=== PATIENT | female | born 1955 | race Caucasian/White ===

== ENCOUNTER 2016-12-05 22:03 | Emergency (ER) | payer BC ==
[~2016-12-05] VITALS: Ht 167.6 cm; Wt 67.1 kg
[~2016-12-05 22:03] MED LIST: ACYC-57 PO; ALPOPS1510; ASCA500 PO; BIMA0.038; DORZ1SOL; MULT-506 PO; ZFRODT4 SL
[2016-12-05 22:07] VITALS: TEMP 36.5; Ht 167.6 cm; Wt 67.1 kg
[2016-12-05] MEDS ORDERED: DOXYCYCLINE HYCLATE 100 MG CAP PO STA (22:34)
--- NOTE | 2016-12-05 22:37 | EMERGENCY ROOM VISIT NOTE ---
ED Visit Note First contact with patient: 22:16 CHIEF COMPLAINT: Tick bite HISTORY OF PRESENT ILLNESS: This patient noticed a tick embedded in the left side of her head this evening. She states she last washed her hair on Sunday , and believes the tick became embedded since then. She is uncertain exactly when the bite occurred. She attempted to use rubbing alcohol and Kelly dish detergent to remove the tick due to a chiropractor's recommendation, however she was unsuccessful. She denies any rash, joint pains, fatigue, or other concerning symptoms. She denies fever, chills, nausea, vomiting, or swelling. The patient is uncertain of her tetanus vaccination status. REVIEW OF SYSTEMS: A complete 10 point review of systems was reviewed with the patient with pertinent positives and negatives as per history of present illness. All else were negative. PMH: Insomnia, muscle aches ALLERGIES: None MEDS: Ambien, Flexeril SOCIAL HISTORY: The patient lives locally with family. She denies drug, alcohol , tobacco use. PHYSICAL EXAM: Vital Signs: Reviewed Nurse's notes. SKIN: There is a slightly engorged tick which remains intact in the left side of her scalp. There is no rash. There is a small zone of inflammation and eccymosis around the spot where the tick was. The skin is otherwise clear. NEUROLOGICAL: Alert and cooperative. Sensory and motor functions grossly intact. ED COURSE: The patient was seen and evaluated as above. The tick was removed using a tick twister. There were no remaining tick parts after removal. The patient was given a Tdap vaccination, and at her request, she was given 200 mg doxycycline as a prophylactic dose for Lyme disease. Discharge instructions were reviewed and the patient was discharged home in good condition. I attest that I have personally reviewed the patient's current medication list. Patient was found to have normal blood pressure on screening and does not require follow-up. DIFFERENTIAL DIAGNOSIS: Tick bite, insect bite, Lyme disease, cellulitis, abscess, and others DIAGNOSIS: Tick bite Current/Historical Medications Scheduled Ascorbic Acid (Vitamin C), 500 MG PO DAILY Bimatoprost (Lumigan), 1 DROPS OP HS Brimonidine Tartrate-Timolol M (Combigan), 1 DROP OPB BID Fish Oil (Milmay-3), 1 CAP PO Q2D [Juice Plus], 4 TABS PO DAILY Scheduled PRN Cyclobenzaprine Hcl (Flexeril), 1 TAB PO HS PRN for Sleep Zolpidem Tartrate (Ambien), 5 MG PO HS PRN for Sleep Allergies Coded Allergies: No Known Allergies (Unverified , 01/20/10) Vital Signs Date Time Temp Pulse Resp B/P (MAP) Pulse Ox O2 Delivery O2 Flow Rate FiO2 12/05/16 23:06 64 18 138/87 97 12/05/16 22:07 36.5 74 16 163/97 99 Room Air Medications Administered Medications (Trade) Dose Ordered Sig/Kam Route Start Time Stop Time Status Last Admin Dose Admin Doxycycline Hyclate (Vibramycin Cap) 200 mg NOW STAT PO 12/05/16 22:34 12/05/16 22:35 DC 12/05/16 22:42 200 MG Diphtheria/ Pertussis/Tetanus Vacc (Adacel Inj) 0.5 ml ONCE ONCE IM. 12/05/16 22:45 12/05/16 22:46 DC 12/05/16 22:44 0.5 ML Departure Information Impression Primary Impression: Tick bite Dispostion Home / Self-Care Condition GOOD Referrals Yesi Jones PA-C (PCP) Patient Instructions ED Bite Tick Abx Tx, ED Facts Tick, [facility] Additional Instructions You were seen in the emergency department today for a tick bite. This was successfully removed utilizing a tick twister. Please watch for signs of Lyme disease including erythema migrans or a bull's- eye rash. You should also watch for excessive joint pains, fatigue, lethargy, or other symptoms. You were given 200 mg doxycycline as a Lyme disease prophylaxis. You were given a Tdap Vaccination. Your arm may be sore from the vaccination for the next few days. Ibuprofen(Motrin, Advil) may be used for fever or pain. Use 600mg every six hours as needed. Take with food. Avoid using more than 2400mg in a 24 hour period. Do not use 2400mg per day for more than three consecutive days without physician direction. Prolonged inappropriate use can lead to stomach upset or ulcers. (AND/OR) Acetaminophen(Tylenol) may be used for fever or pain. Use 1000mg every six hours as needed. Avoid using more than 3000mg in a 24 hour period. Please follow up with your PCP in 7-14 days for recheck and possible labs for Lyme disease. Return to the emergency department for worsening redness, pain, swelling, puslike drainage, fever, chills, nausea, vomiting, or other concerning symptoms. Problem Qualifiers Primary Impression: Tick bite Encounter type: initial encounter Qualified Codes: W57.XXXA - Bitten or stung by nonvenomous insect and other nonvenomous arthropods, initial encounter
[2016-12-05] MEDS ORDERED: DIPHTHERIA/TETANUS/PERTUSSIS 0.5 ML SYR/VIAL IM. ONE (22:45)
[2016-12-05] MEDS ORDERED: BIMA0.01 OP (23:00)
[2016-12-05] MEDS ORDERED: ASCO1CAP3 PO (23:00)
[2016-12-05] MEDS ORDERED: CYCL10TA6 PO (23:00)
[2016-12-05] MEDS ORDERED: OMEG10007 PO (23:00)
[2016-12-05] MEDS ORDERED: BRIM0.2S OPB (23:00)
[2016-12-05] MEDS ORDERED: JUICE PLUS PO (23:00)
[2016-12-05] MEDS ORDERED: ZOLP5TAB PO (23:00)
[2016-12-05 23:06] VITALS: BP 138/87; PULSE 64; O2SAT 97
== END 2016-12-05 23:06 | disposition home or self-care (01) ==
LOC: C.EDB 22:06 → C.EDD 23:06
DX: S00.06XA Insect bite (nonvenomous) of scalp, initial encounter (principal); W57.XXXA Bitten or stung by nonvenomous insect and other nonvenomous arthropods, initial encounter; Y92.9 Unspecified place or not applicable; G47.00 Insomnia, unspecified; Z79.899 Other long term (current) drug therapy

== ENCOUNTER 2024-09-04 17:17 | Observation (INO) ==
[2024-09-04 18:46] LABS: Hematocrit (blood only) 44.4 % (37.0-47.0); Hemoglobin 15.0 g/dl (12.0-16.0); Immature Granulocytes # (auto) 0.01 K/uL (0.01-0.20); Immature Granulocytes % (auto) 0.2 %; Mean Corpuscular Hemoglobin 29.7 pg (25.0-34.0); Mean Corpuscular Volume 87.9 fL (80.0-100.0); Platelet Count 271 K/uL (130-400); RDW Standard Deviation 37.9 fL (36.4-46.3); Red Blood Count 5.05 M/uL (4.20-5.40); White Blood Count 5.48 K/ul (4.8-10.8)
[2024-09-04 19:03] LABS: Alanine Aminotransferase 24.0 U/L (7-52); Albumin Globulin Ratio 1.3 (0.9-2); Alkaline Phosphatase 91.0 U/L (34-104); Anion Gap 6.0 (3-11); Bilirubin,Total 0.4 mg/dl (0.2-1.0); Blood Urea Nitrogen 18.0 mg/dl (6-23); Calcium 9.9 mg/dl (8.6-10.3); Carbon Dioxide 31.0 mmol/L (21-32); Chloride 102.0 mmol/L (98-107); Creatinine Clr Calc Pharmacy 53.8 ml/min; Globulin 3.3 gm/dl (2.5-4.0); Glucose 106.0 mg/dl (70-99(Fasting)); Potassium 4.0 mmol/L (3.5-5.1); Sodium 139.0 mmol/L (136-145); Total Protein 7.7 gm/dl (6.0-8.3)
[2024-09-04 19:31] LABS: INR 1.0 (0.9-1.1); Partial Thromboplastin Time 26 Seconds (21-31); Prothrombin Time 10.6 Seconds (9.0-12.0)
[2024-09-04] MEDS: SODIUM CHLORIDE 0.9% 1,000 ML IV ONE (20:06)
--- NOTE | 2024-09-04 21:17 | XRay Report ---
Exam(s): XR CXR 2 VIEWS EXAM: XR Chest, 2 Views CLINICAL HISTORY: Reason for exam: PNA. TECHNIQUE: Frontal and lateral views of the chest. COMPARISON: No relevant prior studies available. FINDINGS: Lungs: [place] of markings or irregular opacity measuring roughly 17 mm projecting in the right lower lung field. No confluent consolidation or overt edema. Pleural space: No pleural effusion. No pneumothorax. Mediastinum: Unremarkable. Bones/joints: No acute fracture. Upper abdomen: Unremarkable as visualized. IMPRESSION: [place] of markings or irregular opacity measuring roughly 17 mm projecting in the right lower lung field. No confluent consolidation or overt edema. Electronically signed by: Maki Dockery M.D. 09/04/24 21:16 PM
--- NOTE | 2024-09-04 21:20 | Emergency Department Note ---
Impression & Plan Atypical pneumonia ED Provider Note NAME: LIBERTAD BENAVIDES AGE: 68 SEX: F : 1955 ARRIVES VIA: Walk-In INFORMANT: Patient ED PROVIDER(S): Héctor Philip DO CHIEF COMPLAINT: SOB HPI: This is a 68-year-old female with the PMHx of HTN, HLD, asthma/COPD and ongoing issues with recurrent PNA as well as prior aspergillosis and MAC presenting to [facility] for further evaluation of SOB. Patient reports she has had ongoing cold-like symptoms. She reports chest congestion and mild shortness of breath. She does report a cough that is mildly nonproductive. Patient states that she is almost finished with her course of cefdinir for pneumonia. Patient states she feels no improvement whatsoever. She said otherwise she is a pretty healthy individual. She is tired of being sick. They deny fever or chills. They deny abdominal pain, nausea and vomiting. No urinary complaints. No recent changes in bowel movements. Patient denies recent changes in medications or OTC supplements. Patient offers no other complaints, today. ADDITIONAL HISTORY OBTAINED: Per HPI Chronic Medical/Social Conditions Affecting Care: Per HPI PAST MEDICAL HISTORY: See Below PAST SURGICAL HISTORY: See Below FAMILY HISTORY: See Below SOCIAL HISTORY: See Below HOME MEDICATIONS: See Below ALLERGIES: See Below VITALS: See Below PHYSICAL EXAMINATION: GENERAL: Sitting up in bed, alert, well appearing, well nourished, no distress, non-toxic EYE EXAM: normal conjunctiva. PERRL and EOM's grossly intact. OROPHARYNX: no exudate, no erythema, lips, buccal mucosa, and tongue normal and mucous membranes are dry NECK: supple, no nuchal rigidity, no adenopathy, non-tender LUNGS: Clear to auscultation. Some congestion/rhonchi. Normal chest wall mechanics HEART: no murmurs, regular rate, regular rhythm ABDOMEN: abdomen soft, non-tender, normo-active bowel sounds, no masses, no rebound or guarding. BACK: Back is symmetrical on inspection and there is no deformity, no midline tenderness, no CVA tenderness. SKIN: no rashes and no bruising UPPER EXTREMITIES: upper extremities are grossly normal. LOWER EXTREMITIES: No pitting edema. NEURO EXAM: Normal sensorium, GCS 15, normal speech, no gross weakness of arms, no gross weakness of legs. MEDICAL DECISION MAKING: Differential diagnoses includes but not limited to Viral URI, failure of outpatient management of pneumonia, fungal infection, atypical pneumonia, COPD flare, asthma exacerbation In summary, this is a 68 year old female who presented with failure of outpatient treatment of community-acquired pneumonia. Differential as above. Nursing notes and pertinent past medical records reviewed. Vital signs reviewed and the patient is afebrile hemodynamically stable. The patient does not appear in acute respiratory distress. She has no significant tachypnea or wheezing. I do not think the patient is in an acute exacerbation of asthma or COPD. History and presentation revealed patient recently being treated for community-acquired pneumonia with cefdinir. Patient failing outpatient treatment. This is not improved at all. Patient does have complex pulmonary history including prior aspergillosis and MAC. I wonder if the patient has not had enough coverage for atypical organism being that she is only on cephalosporin as an outpatient. Do wonder if she could have recurrent fungal or atypical infections. Plan to repeat labs and chest x-ray today. Patient may benefit from further imaging if it is unclear that she still has pneumonia. Clinically she sounds like she has pneumonia. Diagnostics interpreted by me include EKG and cardiac monitoring as listed below: -Cardiac Monitoring: An order was placed for continuous cardiac monitoring. The monitor shows a rate of 70-110s with regular rhythm. -ECG: EKG independently interpreted by me reveals normal sinus rhythm at a ventricular rate of [address] segment changes to suggest STEMI. There are low voltage QRS complexes on this EKG. Patient completed laboratory studies and imaging. Results independently interpreted by me are CBC shows no significant leukocytosis or anemia. No electrolyte derangements or kidney dysfunction. Procalcitonin is also unremarkable. CXR independently interpreted by me reveals no evidence of focal consolidation to suggest pna. No large pneumothorax or pleural effusion. The patient still is having severe symptoms and does not feel any better with abnormal imaging and labs. Will obtain a CT of the chest for further characterization. Patient was managed with ceftriaxone for coverage of pneumonia with atypical coverage with azithromycin. She was given IV fluid resuscitation. CT shows again possible pneumonia in the right middle and lower lobes but could be mass. I am concerned that we may have been treating this patient for pneumonia but she could have underlying mass or malignancy. I do think she would benefit from evaluation by a jig grinder. I do think she would benefit from inpatient management as she has failed outpatient management. Patient may need further investigation into possible mass vs pneumonia with bronchoscopy if she fails to improve with IV antibiotics. Ultimately, the decision was made to admit the patient for atypical pneumonia and failure of outpatient treatment. I discussed the case with the hospitalist service via telephone/TigerText and they are agreeable to admit the patient to their services. Based on the above, including the patient's age, coexisting illnesses, labs, imaging, and exam findings the decision to treat as an inpatient. I discussed the patient with the hospitalist team who recommended admission to their services. They received the medications, treatments, interventions indicated above and their condition remained stable. I discussed my findings with the patient and their family and they understand and agree with the treatment plan. All patient / family questions were answered to their satisfaction. Based on the above, including the patient's age, coexisting illnesses, labs, imaging, and exam findings the decision to treat as an outpatient. I discussed my findings with the patient and they understand and agree with the treatment plan. Patient / Patient's family was counseled regarding concerning signs and symptoms that should prompt re-evaluation in the ED, and they expressed understanding. All patient / family questions were answered to their satisfaction. Strict return precautions were reviewed. See discharge instructions for more complete detail and supportive care recommendations. Consults/Care Managements Discussions: Per MDM ER treatment provided: See above Procedures:none Critical Care: None The chart was completed utilizing [employer] ([employer]) Speech voice recognition software. Grammatical errors, random word insertions, pronoun errors, and incomplete sentences are an occasional consequence of this system due to software limitations, ambient noise, and hardware issues. Any formal questions or concerns about the content, text, or information contained within the body of this dictation should be directly addressed to the physician for clarification. Past Med/Surg History Problem List (Updated 09/06/24 @ 20:35 by Héctor Philip DO) Atypical pneumonia (Acute) COPD with emphysema Abnormal chest CT Bronchiectasis Pulmonary nodule Pneumonia Social History Smoking Status: Former smoker Tobacco Type: Cigarettes Second Hand Exposure: No; Do You Dip or Chew Tobacco: No; Hx Alcohol Use: No Hx Substance Use: No Preferred Language: Martiniquais Communication Ability: Effective Embroidery Specialist Required: No Beliefs That Will Affect Care: None Current Living Situation: Spouse Feels Safe at Home: Yes Assistive Devices: Glasses Allergies Allergies Allergy/AdvReac Type Severity Reaction Status Date / Time latex Allergy sores in Verified 09/05/24 00:31 mouth Home Meds Home Medications Medication Instructions Recorded Confirmed L.acidophilus-L.plantarum-B.animalis-B.longum 1 cap PO QAM 09/05/24 09/05/24 2 billion cell capsule Mushroom Complex 1 cap PO QAM 09/05/24 09/05/24 Nucleo Immune 1 cap PO QAM 09/05/24 09/05/24 acyclovir 400 mg tablet 400 mg PO QPM 09/05/24 09/05/24 albuterol sulfate 90 mcg/actuation 2 puff inhalation Q6 PRN cough or 09/05/24 09/05/24 aerosol inhaler wheeze alprazolam 0.25 mg tablet 0.25 mg PO BID PRN Anxiety 09/05/24 09/05/24 ascorbic acid (vitamin C) 1,000 mg 3,000 mg PO TID 09/05/24 09/05/24 tablet (Vitamin C) aspirin 81 mg tablet,delayed 81 mg PO QAM 09/05/24 09/05/24 release vzlkpex-dlhhsqfzbjuif-bmqernqs 250 1 tab PO Q6H PRN Headache 09/05/24 09/05/24 mg-250 mg-65 mg tablet (Excedrin Migraine) brimonidine 0.2 %-timolol 0.5 % 1 drp OPB [facility] 09/05/24 09/05/24 eye drops (Combigan) calcium 1,000 mg (as 1 tab PO DAILY 09/05/24 09/05/24 carbonate)-vitamin D3 20 mcg (800 unit) tablet cider 1 tab PO 3XWK 09/05/24 09/05/24 fupteiu-Rh-kofskmuglfvpvpak-tea 500 mg-100 mcg-300 mg-60 mg tab (Apple Cider Vinegar Plus) cinnamon bark 500 mg capsule 500 mg PO AMPM 09/05/24 09/05/24 (Cinnamon) colostrum, bovine 500 mg capsule 1,000 mg PO QAM 09/05/24 09/05/24 cyclobenzaprine 10 mg tablet 10 mg PO BID PRN Muscle Spasm 09/05/24 09/05/24 echinacea 380 mg capsule 380 mg PO TID 09/05/24 09/05/24 fluticasone propionate 50 1 spray intranasal AMHS 09/05/24 09/05/24 mcg/actuation nasal spray,suspension garlic 580 mg capsule 1 mg PO QAM 09/05/24 09/05/24 latanoprostene bunod 0.024 % eye 1 drp OPB HS 09/05/24 09/05/24 drops (Vyzulta) lysine HCl 1,000 mg tablet 1,000 mg PO TID 09/05/24 09/05/24 magnesium 250 mg tablet 500 mg PO DAILY 09/05/24 09/05/24 melatonin 5 mg capsule 5 mg PO HS 09/05/24 09/05/24 multivitamin 1 tab PO QAM 09/05/24 09/05/24 nutritional supplement-fiber oral 1 ea PO UD 09/05/24 09/05/24 liquid oregano oil 1,500 mg capsule 1,500 mg PO DAILY PRN DIRECTED 09/05/24 09/05/24 rosuvastatin 5 mg tablet 5 mg PO Q OTHER DAY 09/05/24 09/05/24 vitamin B complex 1 tab PO QAM 09/05/24 09/05/24 zolpidem 5 mg tablet 5 mg PO HS 09/05/24 09/05/24 Previous Rx's Medication Instructions Recorded albuterol sulfate 2.5 mg/0.5 mL 2.5 mg (0.5 mL) NEB BID #60 ea 09/06/24 solution for nebulization albuterol sulfate 2.5 mg/3 mL 2.5 mg (3 mL) inhalation Q12H PRN 09/06/24 (0.083 %) solution for nebulization shortness of breath or wheezing #6 vials doxycycline hyclate 100 mg capsule 100 mg PO BID 14 days #28 caps 09/06/24 sodium chloride 7 % for 4 ml NEB BIDR #240 mL 09/06/24 nebulization Results & Data (ED) Vital Signs Vital Signs - 24 hr 09/04/24 17:20 09/04/24 19:14 09/04/24 19:56 Temperature 36.7 C Temperature Source Temporal Artery Scan Pulse Rate 73 Pulse Rate [Finger] 74 Respiratory Rate 20 20 Respiratory Effort / Characteristics Non-Labored Spontaneous Respiratory Depth Normal Respiratory Pattern Regular Blood Pressure 156/89 H Blood Pressure [Right Arm] 147/83 H Blood Pressure Mean 111 Blood Pressure Mean [Right Arm] 104 Blood Pressure Position Sitting Blood Pressure Position [Right Arm] Pulse Oximetry 97 97 94 Oxygen Delivery Method Room Air Room Air Room Air Sepsis Recent Fever Within 48 Hours No Sepsis New/Unexplained Change in Mental Status N/A Sepsis Action Taken by Nursing No Action Required 09/04/24 19:59 09/04/24 20:58 09/04/24 21:08 Temperature Temperature Source Pulse Rate 88 Pulse Rate [Finger] 83 Respiratory Rate 16 Respiratory Effort / Characteristics Non-Labored Non-Labored Spontaneous Respiratory Depth Normal Normal Respiratory Pattern Regular Blood Pressure Blood Pressure [Right Arm] 164/85 H Blood Pressure Mean Blood Pressure Mean [Right Arm] 111 Blood Pressure Position Blood Pressure Position [Right Arm] Lying Pulse Oximetry 97 Oxygen Delivery Method Room Air Sepsis Recent Fever Within 48 Hours Sepsis New/Unexplained Change in Mental Status Sepsis Action Taken by Nursing Laboratory Data 09/06/24 05:31 09/06/24 05:31 Lab Results 09/04/24 Range/Units 18:30 WBC 5.48 (4.8-10.8) K/ul RBC 5.05 (4.20-5.40) M/uL Hgb 15.0 (12.0-16.0) g/dl Hct 44.4 (37.0-47.0) % MCV 87.9 (80.0-100.0) fL MCH 29.7 (25.0-34.0) pg MCHC 33.8 (32.0-36.0) g/dL RDW Std Deviation 37.9 (36.4-46.3) fL RDW Coeff of Héctor 11.9 (11.5-14.5) % Plt Count 271 (130-400) K/uL MPV 10.6 (9.4-12.4) fL Immature Gran % (Auto) 0.2 % Neut % (Auto) 51.4 % Lymph % (Auto) 37.2 % Emmet % (Auto) 7.3 % Eos % (Auto) 2.6 % Baso % (Auto) 1.3 % Neut # (Auto) 2.82 (1.40-6.50) K/uL Lymph # (Auto) 2.04 (1.20-3.40) K/uL Emmet # (Auto) 0.40 (0.11-0.59) K/uL Eos # (Auto) 0.14 (0.00-0.50) K/uL Baso # (Auto) 0.07 (0.00-0.20) K/uL Immature Gran # (Auto) 0.01 (0.01-0.20) K/uL PT 10.6 (9.0-12.0) Seconds INR 1.0 (0.9-1.1) APTT 26 (21-31) Seconds PTT Ratio 1.0 Sodium 139 (136-145) mmol/L Potassium 4.0 (3.5-5.1) mmol/L Chloride 102 (98-107) mmol/L Carbon Dioxide 31 (21-32) mmol/L Anion Gap 6 (3-11) BUN 18 (6-23) mg/dl Creatinine 0.90 (0.6-1.2) mg/dl Est Cr Clr Drug Dosing 53.8 ml/min eGFR 69.64 BUN/Creatinine Ratio 20.0 (10-20) Glucose 106 H (70-99(Fasting)) mg/dl Calcium 9.9 (8.6-10.3) mg/dl Total Bilirubin 0.4 (0.2-1.0) mg/dl AST 33 (13-39) U/L ALT 24 (7-52) U/L Alkaline Phosphatase 91 (34-104) U/L Troponin I High Sens 3.5 (0-14) pg/ml Total Protein 7.7 (6.0-8.3) gm/dl Albumin 4.4 (3.4-5.0) gm/dl Globulin 3.3 (2.5-4.0) gm/dl Albumin/Globulin Ratio 1.3 (0.9-2) Procalcitonin < 0.02 (0-0.5) ng/ml Administered Medications Discontinued Medications Acetaminophen (Acetaminophen 325 Mg Tab) 650 mg PO Q4H PRN PRN Reason: Pain or Fever Stop: 10/05/24 03:25 Last Admin: 09/05/24 19:04 Dose: 650 mg Documented By: HM Acyclovir (Acyclovir 400 Mg Tab) 400 mg PO QPM ALEKS Stop: 10/05/24 20:59 Last Admin: 09/05/24 20:35 Dose: 400 mg Documented By: RASHMI Albuterol (Albuterol 0.5% Neb Soln 2.5 Mg/0.5 Ml Vial) 2.5 mg NEB Q6R [facility]; Protocol Stop: 10/05/24 18:59 Last Admin: 09/06/24 13:38 Dose: 2.5 mg Documented By: Admin: 09/06/24 06:57 Dose: 2.5 mg Documented By: Admin: 09/06/24 03:31 Dose: Not Given Documented By: Admin: 09/05/24 19:22 Dose: 2.5 mg Documented By: GILDARDO Ascorbic Acid (Ascorbic Acid 500 Mg Tab) 500 mg PO TID ALEKS Stop: 10/05/24 20:59 Last Admin: 09/06/24 14:32 Dose: 500 mg Documented By: Admin: 09/06/24 08:00 Dose: 500 mg Documented By: Admin: 09/05/24 20:36 Dose: 500 mg Documented By: RASHMI Aspirin (Aspirin 81 Mg Ectab) 81 mg PO QAM [facility] Stop: 10/05/24 08:59 Last Admin: 09/06/24 08:00 Dose: 81 mg Documented By: Admin: 09/05/24 08:38 Dose: 81 mg Documented By: THO Brimonidine/Timolol (Brimonidine Tartrate/Timolol) 1 drops OP BID [facility] Stop: 10/05/24 20:59 Last Admin: 09/06/24 08:00 Dose: 1 drops Documented By: Admin: 09/05/24 20:34 Dose: 1 drops Documented By: RASHMI Calcium/Vitamin D (Calcium 600mg + Vit D 400 Iu Tab) 1 tab PO DAILY ALEKS Stop: 10/05/24 08:59 Last Admin: 09/06/24 08:00 Dose: 1 tab Documented By: Admin: 09/05/24 08:39 Dose: 1 tab Documented By: THO Cyclobenzaprine HCl (Cyclobenzaprine Hcl 10 Mg Tab) 10 mg PO BID PRN PRN Reason: Muscle Spasm Stop: 10/05/24 03:25 Last Admin: 09/05/24 19:04 Dose: 10 mg Documented By: RASHMI Doxycycline Hyclate (Doxycycline Hyclate 100 Mg Cap) 100 mg PO NOW STA Stop: 09/06/24 12:29 Last Admin: 09/06/24 12:47 Dose: 100 mg Documented By: CYDNEY Fluticasone Propionate (Fluticasone Propionate Na Spr 16 Gm Btl) 1 sprays NA AMHS ALEKS Stop: 10/05/24 08:59 Last Admin: 09/06/24 08:00 Dose: 1 sprays Documented By: Admin: 09/05/24 20:34 Dose: 1 sprays Documented By: Admin: 09/05/24 08:37 Dose: 1 sprays Documented By: THO Guaifenesin (Guaifenesin 600 Mg Tabcr) 600 mg PO Q12 ALEKS Stop: 10/05/24 20:59 Last Admin: 09/06/24 08:00 Dose: 600 mg Documented By: Admin: 09/05/24 20:35 Dose: 600 mg Documented By: RASHMI Sodium Chloride (Nss) 1,000 mls @ 999 mls/hr IV .Q1H1M ONE Stop: 09/04/24 21:03 Last Infusion: 09/04/24 21:09 Dose: Infused Documented By: Admin: 09/04/24 20:06 Dose: 999 mls/hr Documented By: EDVIN Ceftriaxone Sodium (Rocephin) 1,000 mg in 50 mls @ 100 mls/hr IV NOW STA Stop: 09/05/24 00:16 Last Infusion: 09/05/24 00:57 Dose: Infused Documented By: Admin: 09/05/24 00:13 Dose: 100 mls/hr Documented By: EDVIN Azithromycin (Zithromax) 500 mg in 255 mls @ 127.5 mls/hr IV NOW ONE Stop: 09/05/24 01:46 Last Infusion: 09/05/24 02:14 Dose: Infused Documented By: Admin: 09/05/24 00:13 Dose: 127.5 mls/hr Documented By: EDVIN Piperacillin Sod/Tazobactam Sod (Zosyn) 4.5 gm in 100 mls @ 25 mls/hr IV Q8H [facility]; Protocol Stop: 09/10/24 05:59 Last Infusion: 09/06/24 09:17 Dose: Infused Documented By: Admin: 09/06/24 05:17 Dose: 25 mls/hr Documented By: Infusion: 09/06/24 02:54 Dose: Infused Documented By: Admin: 09/05/24 22:30 Dose: 25 mls/hr Documented By: Infusion: 09/05/24 17:34 Dose: Infused Documented By: Admin: 09/05/24 13:33 Dose: 25 mls/hr Documented By: Infusion: 09/05/24 10:56 Dose: Infused Documented By: Admin: 09/05/24 06:26 Dose: 25 mls/hr Documented By: RASHMI Azithromycin (Zithromax) 500 mg in 255 mls @ 127.5 mls/hr IV Q24H ALEKS Stop: 09/10/24 20:59 Last Infusion: 09/05/24 23:03 Dose: Infused Documented By: Admin: 09/05/24 20:34 Dose: 127.5 mls/hr Documented By: RASHMI Ioversol (Optiray 320 125ml) 115 ml IV ONCE ONE Stop: 09/04/24 21:39 Last Admin: 09/04/24 21:39 Dose: 115 ml Documented By: MARINO Lactobacillus Acidophilus (Advanced Probiotic 625 Mg Capsule) 1,250 mg PO QAM ALEKS Stop: 10/05/24 08:59 Last Admin: 09/06/24 08:00 Dose: 1,250 mg Documented By: Admin: 09/05/24 08:38 Dose: 1,250 mg Documented By: THO Magnesium Oxide (Magnesium Oxide 400 Mg Tab) 400 mg PO DAILY ALEKS Stop: 10/05/24 08:59 Last Admin: 09/06/24 08:00 Dose: 400 mg Documented By: Admin: 09/05/24 08:39 Dose: 400 mg Documented By: THO Melatonin (Melatonin 3 Mg Tab) 4.5 mg PO HS ALEKS Stop: 10/05/24 20:59 Last Admin: 09/05/24 20:35 Dose: 4.5 mg Documented By: RASHMI Miscellaneous (Brimonidine-Timolol [Combigan]: Order Awaiting Action) 1 each N/A QS ALEKS Stop: 10/05/24 07:59 Last Admin: 09/05/24 15:11 Dose: Not Given Documented By: Admin: 09/05/24 07:52 Dose: Not Given Documented By: THO Miscellaneous (Latanoprostene Bunod [Vyzulta]: Order Awaiting Action) 1 each N/A QS [facility] Stop: 10/05/24 07:59 Last Admin: 09/05/24 15:11 Dose: Not Given Documented By: Admin: 09/05/24 07:53 Dose: Not Given Documented By: THO Miscellaneous (Excedrin Migraine*Order Awaiting Action) 1 each N/A QS [facility] Stop: 10/06/24 15:59 Last Admin: 09/06/24 14:00 Dose: Not Given Documented By: CYDNEY Multivitamins (Multivitamin Tab) 1 tab PO QAM [facility] Stop: 10/05/24 08:59 Last Admin: 09/06/24 08:00 Dose: 1 tab Documented By: Admin: 09/05/24 08:39 Dose: 1 tab Documented By: THO Latanoprostene Hakan ([Vyzulta]) 1 each OP [facility] Stop: 10/05/24 20:59 Last Admin: 09/05/24 20:35 Dose: 1 drops Documented By: RASHMI Rosuvastatin Calcium (Rosuvastatin Calcium 5 Mg Tab) 5 mg PO Q48H ALEKS Stop: 10/05/24 08:59 Last Admin: 09/05/24 08:39 Dose: 5 mg Documented By: THO Sodium Chloride (Sodium Chlor 7% 4 Ml Neb) 4 ml NEB BIDR [facility] Stop: 10/05/24 18:59 Last Admin: 09/06/24 06:57 Dose: 4 ml Documented By: Admin: 09/05/24 19:22 Dose: 4 ml Documented By: GILDARDO Vitamin B Complex (Vitamin B Complex Tab) 1 tab PO QAM [facility] Stop: 10/05/24 08:59 Last Admin: 09/06/24 08:00 Dose: 1 tab Documented By: Admin: 09/05/24 08:39 Dose: 1 tab Documented By: THO Zolpidem Tartrate (Zolpidem Tartrate 5 Mg Tab) 5 mg PO HS [facility] Stop: 10/05/24 20:59 Last Admin: 09/05/24 20:35 Dose: 5 mg Documented By: RASHMI Imaging Data Radiologist's Impression: Chest X-Ray 09/04/24 20:03 Exam(s): XR CXR 2 VIEWS EXAM: XR Chest, 2 Views CLINICAL HISTORY: Reason for exam: PNA. TECHNIQUE: Frontal and lateral views of the chest. COMPARISON: No relevant prior studies available. FINDINGS: Lungs: Malone of markings or irregular opacity measuring roughly 17 mm projecting in the right lower lung field. No confluent consolidation or overt edema. Pleural space: No pleural effusion. No pneumothorax. Mediastinum: Unremarkable. Bones/joints: No acute fracture. Upper abdomen: Unremarkable as visualized. IMPRESSION: Malone of markings or irregular opacity measuring roughly 17 mm projecting in the right lower lung field. No confluent consolidation or overt edema. Electronically signed by: Maki Dockery M.D. 09/04/24 21:16 PM Discharge Plan Visit Data Chief Complaint: Shortness of Breath/Dyspnea Stated Complaint: COUGH, DIFFICULTY BREATHING, DIZZY, SICK IN STOMAC ED Provider: Héctor Philip Discharge Problem: Atypical pneumonia Patient Disposition: Admitted As Inpatient Condition: Good Discharge Instructions Interventions: ED Discharge Assessment Last Done: 09/05/24 02:53
[2024-09-04] MEDS: OPTIRAY 320 125ml IV ONE (21:39)
--- NOTE | 2024-09-04 23:35 | CT Scan Report ---
Exam(s): CTA CHEST IV Amt: 115 ml optiray 320 EXAM: CT Angiography Chest With Intravenous Contrast CLINICAL HISTORY: Evaluate for potential PE. TECHNIQUE: Axial computed tomographic angiography images of the chest with intravenous contrast. CTDI is 20 mGy and DLP is 313.96 mGy-cm. Automated exposure control was utilized for the study. A dose lowering technique was utilized adhering to the principles of ALARA. MIP reconstructed images were created and reviewed. CONTRAST: 115 mL Optiray 320 COMPARISON: No relevant prior studies available. FINDINGS: Pulmonary arteries: No evidence for pulmonary embolism. Aorta: No acute findings. No thoracic aortic aneurysm. Lungs: Subsegmental masslike airspace consolidation involving the anterior and inferior right middle lobe. The lungs are otherwise well- aerated. Pleural space: Unremarkable. No significant effusion. No pneumothorax. Heart: The cardiac chambers are normal in size. Moderate mid LAD calcification. No pericardial effusion. Bones/joints: No acute fracture. No dislocation. Soft tissues: Unremarkable. Lymph nodes: Unremarkable. No enlarged lymph nodes. IMPRESSION: 1. No evidence for pulmonary embolism. 2. Subsegmental masslike airspace consolidation involving the anterior and inferior right middle lobe. The primary consideration is pneumonia; however, recommend follow-up to resolution to exclude an underlying mass lesion. Electronically signed by: Faisal Robison MD 09/04/24 23:34 PM
[2024-09-05] MEDS: AZITHROMYCIN 500 MG/255 ML BAG IV ONE (00:13)
[2024-09-05] MEDS: cefTRIAXone SODIUM 1,000 MG/50 ML BAG IV STA (00:13)
--- NOTE | 2024-09-05 02:44 | History & Physical Report ---
Date of Service September 05, 2024 Assessment & Plan (1) Pneumonia: Plan: 68-year-old female with past medical history significant for prediabetes, asthma in remission, nonallergic rhinitis, hypertension, CAD, dry mouth and eyes, lichen planus, cervicalgia, migraine, adrenal nodule, persistent insomnia, comes because of ongoing cough and shortness of breath. Patient is having cough since last 3 weeks. Initially had some fever. Bringing up phlegm. Sputum was brownish and bloody. Saw pulmonary on 08/27/2024 and prescribed Z-Corey. She took Z-Corey for 1 day and next day antibiotic was changed to cefdinir. Initially she felt better but the symptoms are not improving. She called pulmonary office and chest x-ray was done and was felt not much improvement so she was advised to come to the ER. Getting shortness of breath with exertion. Some chest heaviness on and off. Sometimes chest tightness with taking deep breath on the right side. Having headache. Dry mouth. No sore throat. Feeling nauseous. No abdominal pain. Normal bowel and bladder movements. Feeling weak and tired. Hemodynamics are okay. Patient has history of MSSA. 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 Completed 3 weeks of voriconazole therapy. Plan to follow-up with CT chest in 6 months. 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 History of recurrent sinus infection. Follows with pulmonary. Pneumonia Failed outpatient treatment History of recurrent pneumonia History of aspergillosis status posttreatment for 3 weeks with voriconazole History of MAC CTA chest showing subsegmental masslike airspace consolidation involving the anterior inferior right middle lobe. Most likely pneumonia but recommended follow-up to resolution to exclude an underlying mass lesion ER given Rocephin and azithromycin Will continue with Zosyn and azithromycin Pulmonary consult in a.m. for further recommendations Mild obstructive CAD per Cardiac cath 03/2023 PVCs On aspirin and statin stopped b tricia as it was causing dry mouyh HTN not on meds will monitor. Asthma Continue home inhalers Dry mouth and eyes Continue home eyedrops DVT prophylaxis SCDs for now Disposition Med/telemetry Full code History of Present Illness Chief Complaint: shortness of breath and cough Primary Care Provider: Yesi Jones PA-C 68-year-old female with past medical history significant for prediabetes, asthma in remission, nonallergic rhinitis, hypertension, CAD, dry mouth and eyes, lichen planus, cervicalgia, migraine, adrenal nodule, persistent insomnia, comes because of ongoing cough and shortness of breath. Patient is having cough since last 3 weeks. Initially had some fever. Bringing up phlegm. Sputum was brownish and bloody. Saw pulmonary on 08/27/2024 and prescribed Z-Corey. She took Z-Corey for 1 day and next day antibiotic was changed to cefdinir. Initially she felt better but the symptoms are not improving. She called pulmonary office and chest x-ray was done and was felt not much improvement so she was advised to come to the ER. Getting shortness of breath with exertion. Some chest heaviness on and off. Sometimes chest tightness with taking deep breath on the right side. Having headache. Dry mouth. No sore throat. Feeling nauseous. No abdominal pain. Normal bowel and bladder movements. Feeling weak and tired. Hemodynamics are okay. Patient has history of MSSA. 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 Completed 3 weeks of voriconazole therapy. Plan to follow-up with CT chest in 6 months. 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 History of recurrent sinus infection. Follows with pulmonary. Past medical history. As mentioned above Past surgical history. Breast lesion excision. Bronchoscopy colonoscopy with left heart catheterization. Cryocautery of cervix. Social history. . Quit smoking 1984. Smoked 1 pack a day for 7 years. No alcohol use. No drug use. Family history. Paternal aunt had breast cancer. Paternal grandfather had lung and colon cancer. Mother had dementia. GERD. Father had [place]. Maternal grandfather heart disorder. Sister has migraines. Allergies Allergy/AdvReac Type Severity Reaction Status Date / Time latex Allergy sores in Verified 09/05/24 00:31 mouth Home Medications Medication Instructions Recorded Confirmed Type L.acidophilus-L.plantarum-B.animalis-B.longum 1 cap PO QAM 09/05/24 09/05/24 History 2 billion cell capsule Mushroom Complex 1 cap PO QAM 09/05/24 09/05/24 History Nucleo Immune 1 cap PO QAM 09/05/24 09/05/24 History acyclovir 400 mg tablet 400 mg PO QPM 09/05/24 09/05/24 History albuterol sulfate 90 mcg/actuation 2 puff inhalation Q6 PRN cough or 09/05/24 09/05/24 History aerosol inhaler wheeze alprazolam 0.25 mg tablet 0.25 mg PO BID PRN Anxiety 09/05/24 09/05/24 History ascorbic acid (vitamin C) 1,000 mg 3,000 mg PO TID 09/05/24 09/05/24 History tablet (Vitamin C) aspirin 81 mg tablet,delayed 81 mg PO QAM 09/05/24 09/05/24 History release qfhkbeh-kwwevwvtylalc-uwnopjdd 250 1 tab PO Q6H PRN Headache 09/05/24 09/05/24 History mg-250 mg-65 mg tablet (Excedrin Migraine) brimonidine 0.2 %-timolol 0.5 % 1 drp OPB AMHS 09/05/24 09/05/24 History eye drops (Combigan) calcium 1,000 mg (as 1 tab PO DAILY 09/05/24 09/05/24 History carbonate)-vitamin D3 20 mcg (800 unit) tablet cefdinir 300 mg capsule 300 mg PO AMHS 09/05/24 09/05/24 History cider 1 tab PO 3XWK 09/05/24 09/05/24 History rknosts-Ht-nsflqruddcwrgiub-tea 500 mg-100 mcg-300 mg-60 mg tab (Apple Cider Vinegar Plus) cinnamon bark 500 mg capsule 500 mg PO AMPM 09/05/24 09/05/24 History (Cinnamon) colostrum, bovine 500 mg capsule 1,000 mg PO QAM 09/05/24 09/05/24 History cyclobenzaprine 10 mg tablet 10 mg PO BID PRN Muscle Spasm 09/05/24 09/05/24 History echinacea 380 mg capsule 380 mg PO TID 09/05/24 09/05/24 History fluticasone propionate 50 1 spray intranasal AMHS 09/05/24 09/05/24 History mcg/actuation nasal spray,suspension garlic 580 mg capsule 1 mg PO QAM 09/05/24 09/05/24 History latanoprostene bunod 0.024 % eye 1 drp OPB HS 09/05/24 09/05/24 History drops (Vyzulta) lysine HCl 1,000 mg tablet 1,000 mg PO TID 09/05/24 09/05/24 History magnesium 250 mg tablet 500 mg PO DAILY 09/05/24 09/05/24 History melatonin 5 mg capsule 5 mg PO HS 09/05/24 09/05/24 History multivitamin 1 tab PO QAM 09/05/24 09/05/24 History nutritional supplement-fiber oral 1 ea PO UD 09/05/24 09/05/24 History liquid oregano oil 1,500 mg capsule 1,500 mg PO DAILY PRN DIRECTED 09/05/24 09/05/24 History rosuvastatin 5 mg tablet 5 mg PO Q OTHER DAY 09/05/24 09/05/24 History vitamin B complex 1 tab PO QAM 09/05/24 09/05/24 History zolpidem 5 mg tablet 5 mg PO HS 09/05/24 09/05/24 History Past Med/Surg History Problem List (Updated 09/05/24 @ 02:40 by Duglas Coats MD) Pneumonia Social History Smoking Status: Former smoker Tobacco Type: Cigarettes Second Hand Exposure: No; Do You Dip or Chew Tobacco: No; Tobacco Cessation Education Requested by Patient: No Hx Alcohol Use: No Hx Substance Use: No Preferred Language: Libyan Communication Ability: Effective Auto Travel Counselor Required: No Beliefs That Will Affect Care: None Current Living Situation: Spouse Other Information That Helps Us Care for You: No Feels Safe at Home: Yes Safety Concerns: Feels Safe At This Time Assistive Devices: None Review of Systems Review of Systems: All systems reviewed & are unremarkable except as noted in HPI & below Physical Exam Physical Exam: General- Not in distress Head- atraumatic Eyes- PERRL. ENT- oropharynx clear Neck- supple, no JVD. Lungs- clear to auscultation no wheezing or crackles Heart- regular rhythm; no murmur, no gallop. Abdomen- normal bowel sounds, soft, nontender, no distension Extremities- no pretibial edema, no erythema seen Neuro- alert, oriented PERRL, no facial palsy; no dysarthria; moves extremities Results & Data Results & Data Vital Signs (Past 12 Hours) Vital Signs Temp Pulse Pulse Resp BP BP Pulse Ox 09/05/24 02:28 81 16 142/96 H 97 09/05/24 01:43 99 H 09/05/24 00:55 82 16 166/115 H 97 09/04/24 23:29 110 H 16 143/88 H 97 09/04/24 21:44 84 16 181/91 H 94 09/04/24 21:08 88 09/04/24 20:58 83 16 164/85 H 97 09/04/24 19:56 94 09/04/24 19:14 74 20 147/83 H 97 09/04/24 17:20 36.7 C 73 20 156/89 H 97 O2 Del Method 09/05/24 02:28 Room Air 09/05/24 01:43 09/05/24 00:55 Room Air 09/04/24 23:29 Room Air 09/04/24 21:44 Room Air 09/04/24 21:08 09/04/24 20:58 Room Air 09/04/24 19:56 Room Air 09/04/24 19:14 Room Air 09/04/24 17:20 Room Air Diagnostic Findings Laboratory Results WBC 5.48 K/ul (4.8-10.8) 09/04/24 18:30 RBC 5.05 M/uL (4.20-5.40) 09/04/24 18:30 Hgb 15.0 g/dl (12.0-16.0) 09/04/24 18:30 Hct 44.4 % (37.0-47.0) 09/04/24 18:30 MCV 87.9 fL (80.0-100.0) 09/04/24 18:30 MCH 29.7 pg (25.0-34.0) 09/04/24 18:30 MCHC 33.8 g/dL (32.0-36.0) 09/04/24 18:30 RDW Std Deviation 37.9 fL (36.4-46.3) 09/04/24 18:30 RDW Coeff of Héctor 11.9 % (11.5-14.5) 09/04/24 18:30 Plt Count 271 K/uL (130-400) 09/04/24 18:30 MPV 10.6 fL (9.4-12.4) 09/04/24 18:30 Immature Gran % (Auto) 0.2 % 09/04/24 18:30 Neut % (Auto) 51.4 % 09/04/24 18:30 Lymph % (Auto) 37.2 % 09/04/24 18:30 [place] % (Auto) 7.3 % 09/04/24 18:30 Eos % (Auto) 2.6 % 09/04/24 18:30 Baso % (Auto) 1.3 % 09/04/24 18:30 Neut # (Auto) 2.82 K/uL (1.40-6.50) 09/04/24 18:30 Lymph # (Auto) 2.04 K/uL (1.20-3.40) 09/04/24 18:30 [place] # (Auto) 0.40 K/uL (0.11-0.59) 09/04/24 18:30 Eos # (Auto) 0.14 K/uL (0.00-0.50) 09/04/24 18:30 Baso # (Auto) 0.07 K/uL (0.00-0.20) 09/04/24 18:30 Immature Gran # (Auto) 0.01 K/uL (0.01-0.20) 09/04/24 18:30 PT 10.6 Seconds (9.0-12.0) 09/04/24 18:30 INR 1.0 (0.9-1.1) 09/04/24 18:30 APTT 26 Seconds (21-31) 09/04/24 18:30 PTT Ratio 1.0 09/04/24 18:30 Sodium 139 mmol/L (136-145) 09/04/24 18:30 Potassium 4.0 mmol/L (3.5-5.1) 09/04/24 18:30 Chloride 102 mmol/L (98-107) 09/04/24 18:30 Carbon Dioxide 31 mmol/L (21-32) 09/04/24 18:30 Anion Gap 6 (3-11) 09/04/24 18:30 BUN 18 mg/dl (6-23) 09/04/24 18:30 Creatinine 0.90 mg/dl (0.6-1.2) 09/04/24 18:30 Est Cr Clr Drug Dosing 53.8 ml/min 09/04/24 18:30 eGFR 69.64 09/04/24 18:30 BUN/Creatinine Ratio 20.0 (10-20) 09/04/24 18:30 Glucose 106 mg/dl (70-99(Fasting)) H 09/04/24 18:30 Calcium 9.9 mg/dl (8.6-10.3) 09/04/24 18:30 Total Bilirubin 0.4 mg/dl (0.2-1.0) 09/04/24 18:30 AST 33 U/L (13-39) 09/04/24 18:30 ALT 24 U/L (7-52) 09/04/24 18:30 Alkaline Phosphatase 91 U/L (34-104) 09/04/24 18:30 Troponin I High Sens 3.5 pg/ml (0-14) 09/04/24 18:30 Total Protein 7.7 gm/dl (6.0-8.3) 09/04/24 18:30 Albumin 4.4 gm/dl (3.4-5.0) 09/04/24 18:30 Globulin 3.3 gm/dl (2.5-4.0) 09/04/24 18:30 Albumin/Globulin Ratio 1.3 (0.9-2) 09/04/24 18:30 Impressions Chest X-Ray 09/04/24 20:03 Exam(s): XR CXR 2 VIEWS EXAM: XR Chest, 2 Views CLINICAL HISTORY: Reason for exam: PNA. TECHNIQUE: Frontal and lateral views of the chest. COMPARISON: No relevant prior studies available. FINDINGS: Lungs: [place] of markings or irregular opacity measuring roughly 17 mm projecting in the right lower lung field. No confluent consolidation or overt edema. Pleural space: No pleural effusion. No pneumothorax. Mediastinum: Unremarkable. Bones/joints: No acute fracture. Upper abdomen: Unremarkable as visualized. IMPRESSION: [place] of markings or irregular opacity measuring roughly 17 mm projecting in the right lower lung field. No confluent consolidation or overt edema. Electronically signed by: Maki Dockery M.D. 09/04/24 21:16 PM Chest CTA 09/04/24 21:20 Exam(s): CTA CHEST IV Amt: 115 ml optiray 320 EXAM: CT Angiography Chest With Intravenous Contrast CLINICAL HISTORY: Evaluate for potential PE. TECHNIQUE: Axial computed tomographic angiography images of the chest with intravenous contrast. CTDI is 20 mGy and DLP is 313.96 mGy-cm. Automated exposure control was utilized for the study. A dose lowering technique was utilized adhering to the principles of ALARA. MIP reconstructed images were created and reviewed. CONTRAST: 115 mL Optiray 320 COMPARISON: No relevant prior studies available. FINDINGS: Pulmonary arteries: No evidence for pulmonary embolism. Aorta: No acute findings. No thoracic aortic aneurysm. Lungs: Subsegmental masslike airspace consolidation involving the anterior and inferior right middle lobe. The lungs are otherwise well- aerated. Pleural space: Unremarkable. No significant effusion. No pneumothorax. Heart: The cardiac chambers are normal in size. Moderate mid LAD calcification. No pericardial effusion. Bones/joints: No acute fracture. No dislocation. Soft tissues: Unremarkable. Lymph nodes: Unremarkable. No enlarged lymph nodes. IMPRESSION: 1. No evidence for pulmonary embolism. 2. Subsegmental masslike airspace consolidation involving the anterior and inferior right middle lobe. The primary consideration is pneumonia; however, recommend follow-up to resolution to exclude an underlying mass lesion. Electronically signed by: Faisal Robison MD 09/04/24 23:34 PM ECG Additional Comments: ECG. Sinus rhythm with occasional PVCs rate of 76. QTc 447 Code Status & VTE Plan VTE Prophylaxis Plan VTE Prophylaxis will be ordered: Yes
[2024-09-05] MEDS ORDERED: NITROGLYCERIN SL 0.4 MG/TAB TAB SL PRN (03:26)
[2024-09-05] MEDS ORDERED: NON-FORMULARY MEDICATION (Aspirin-Acetaminophen-Caffeine [Excedrin Migraine] 250-250-65 mg PO PRN (03:26)
[2024-09-05] MEDS ORDERED: ALBUTEROL HFA 8 GM INHALER INH PRN (03:26)
[2024-09-05] MEDS: PIPERACILLIN/TAZOBACTAM 4.5 GM/100 ML BAG IV SCH (06:26)
[2024-09-05 06:53] LABS: Hematocrit (blood only) 41.0 % (37.0-47.0); Hemoglobin 14.0 g/dl (12.0-16.0); Immature Granulocytes # (auto) 0.01 K/uL (0.01-0.20); Immature Granulocytes % (auto) 0.2 %; Mean Corpuscular Hemoglobin 30.2 pg (25.0-34.0); Mean Corpuscular Volume 88.4 fL (80.0-100.0); Platelet Count 215 K/uL (130-400); RDW Standard Deviation 37.6 fL (36.4-46.3); Red Blood Count 4.64 M/uL (4.20-5.40); White Blood Count 5.31 K/ul (4.8-10.8)
[2024-09-05 07:09] LABS: Anion Gap 7.0 (3-11); Blood Urea Nitrogen 11.0 mg/dl (6-23); Calcium 9.1 mg/dl (8.6-10.3); Carbon Dioxide 31.0 mmol/L (21-32); Chloride 104.0 mmol/L (98-107); Creatinine Clr Calc Pharmacy 71.2 ml/min; Glucose 86.0 mg/dl (70-99(Fasting)); Magnesium 2.2 mg/dl (1.7-2.4); Potassium 3.5 mmol/L (3.5-5.1); Sodium 142.0 mmol/L (136-145)
--- NOTE | 2024-09-05 07:52 | Pulmonary Consultation ---
Date of Consultation September 05, 2024 Assessment & Plan (1) Pulmonary nodule: (2) Bronchiectasis: (3) Abnormal chest CT: (4) COPD with emphysema: Plan CTA chest 09/04/2024 personally viewed: Paraseptal emphysema appreciated bilaterally Minimal bilateral apical pleural scarring Pulmonary opacity/nodularity appreciated in the right middle lobe medial segment perifissural Pulmonary nodule with central calcification superior to there is nodularity in the right middle lobe Bronchiectasis of the medial segment of right middle lobe No significant mediastinal lymphadenopathy Social history: [id number] smoking history, quit at the age of 38. --Abnormal chest CT with right middle lobe opacity and nodule with central calcification chest tube. QTc 447 Procalcitonin negative I was personally able to look at the CAT scan of the chest in June 2024 as well as March 2024. Patient had dense consolidative process in the medial segment of right middle lobe in March 2024 which showed some improvement in June 2024 but she still had 2 pulmonary nodules in June 2024 The latest CAT scan shows consolidative process perifissural which is new. Given the duration between end of June and end august is only 2 months, I would not expect as malignancy to grow this fast. This is most likely infectious. Would recommend to continue with antibiotics. --Bronchiectasis Appreciated in the right middle lobe --COPD with emphysema [id number] smoking history, quit at the age of 38. Not on any inhalers at home Patient already follows up with pulmonary Dr. Bell as an outpatient Plan: I was personally able to look at the CAT scan of the chest in June 2024 as well as March 2024. Patient had dense consolidative process in the medial segment of right middle lobe in March 2024 which showed some improvement in June 2024 but she still had 2 pulmonary nodules in June 2024 The latest CAT scan shows consolidative process perifissural which is new. Given the duration between end of June and august is only 2 months, I would not expect as malignancy to grow this fast. This is most likely infectious. Would recommend to continue with antibiotics. Would recommend to give azithromycin 500 mg for 5 more days. Sputum AFB to make sure patient does not have GONSALO Nebulized hypertonic saline with nebulized albuterol and Mucinex to help her bring up the phlegm Recommend CT chest in 4-6 weeks. If patient still has persistent nodularity in the RML with no decrease in size then bronchoscopy will be considered. I spent more than 75 minutes looking in the chart, images, discussing the plan of care with the patient, RN as well as primary team Please note the above document was generated using voice recognition software. It may contain grammatical, syntax or spelling errors.Any formal questions or concerns about the content, text or information contained within the body of this dictation should be directly addressed to the provider for clarification. History of Present Illness Attending Physician: Marii Knight MD History of Present Illness 68-year-old female admitted to the hospital for pneumonia failed outpatient therapy Past medical history: Hypertension, coronary artery disease, lichen planus, migraine, insomnia Pulmonary consulted for abnormal chest CT Previous records and images personally reviewed Patient has been dealing with infection in the lung since at least March 2024 That is when she had right middle lobe pneumonia and he was given antibiotics She also underwent bronchoscopy as per the patient not too long ago. She had another CAT scan of the chest done in June. She does carry history of pulmonary nodules. Follows up with Dr. Bell at [facility]. Has been complaining of cough, bringing up clear phlegm. Denies any chest congestion No hemoptysis Has lost approximately 5 pounds, she had changed her diet as well as she was prediabetic. No fever or chills No night sweats, no unintentional weight loss No unusual headache or blurry vision. No nausea or vomiting Social history: 32-[id number]-fqua smoking history, quit at the age of 38. No illicit drug use. 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 No history of lung cancer in the family Allergies Allergy/AdvReac Type Severity Reaction Status Date / Time latex Allergy sores in Verified 09/05/24 00:31 mouth Home Medications Medication Instructions Recorded Confirmed Type L.acidophilus-L.plantarum-B.animalis-B.longum 1 cap PO QAM 09/05/24 09/05/24 History 2 billion cell capsule Mushroom Complex 1 cap PO QAM 09/05/24 09/05/24 History Nucleo Immune 1 cap PO QAM 09/05/24 09/05/24 History acyclovir 400 mg tablet 400 mg PO QPM 09/05/24 09/05/24 History albuterol sulfate 90 mcg/actuation 2 puff inhalation Q6 PRN cough or 09/05/24 09/05/24 History aerosol inhaler wheeze alprazolam 0.25 mg tablet 0.25 mg PO BID PRN Anxiety 09/05/24 09/05/24 History ascorbic acid (vitamin C) 1,000 mg 3,000 mg PO TID 09/05/24 09/05/24 History tablet (Vitamin C) aspirin 81 mg tablet,delayed 81 mg PO QAM 09/05/24 09/05/24 History release kudoyeq-bjqkrzksswiuj-xpotpzlu 250 1 tab PO Q6H PRN Headache 09/05/24 09/05/24 History mg-250 mg-65 mg tablet (Excedrin Migraine) brimonidine 0.2 %-timolol 0.5 % 1 drp OPB AMHS 09/05/24 09/05/24 History eye drops (Combigan) calcium 1,000 mg (as 1 tab PO DAILY 09/05/24 09/05/24 History carbonate)-vitamin D3 20 mcg (800 unit) tablet cefdinir 300 mg capsule 300 mg PO AMHS 09/05/24 09/05/24 History cider 1 tab PO 3XWK 09/05/24 09/05/24 History upadllc-Jm-lxwbqfnduvhpylwf-tea 500 mg-100 mcg-300 mg-60 mg tab (Apple Cider Vinegar Plus) cinnamon bark 500 mg capsule 500 mg PO AMPM 09/05/24 09/05/24 History (Cinnamon) colostrum, bovine 500 mg capsule 1,000 mg PO QAM 09/05/24 09/05/24 History cyclobenzaprine 10 mg tablet 10 mg PO BID PRN Muscle Spasm 09/05/24 09/05/24 History echinacea 380 mg capsule 380 mg PO TID 09/05/24 09/05/24 History fluticasone propionate 50 1 spray intranasal AMHS 09/05/24 09/05/24 History mcg/actuation nasal spray,suspension garlic 580 mg capsule 1 mg PO QAM 09/05/24 09/05/24 History latanoprostene bunod 0.024 % eye 1 drp OPB HS 09/05/24 09/05/24 History drops (Vyzulta) lysine HCl 1,000 mg tablet 1,000 mg PO TID 09/05/24 09/05/24 History magnesium 250 mg tablet 500 mg PO DAILY 09/05/24 09/05/24 History melatonin 5 mg capsule 5 mg PO HS 09/05/24 09/05/24 History multivitamin 1 tab PO QAM 09/05/24 09/05/24 History nutritional supplement-fiber oral 1 ea PO UD 09/05/24 09/05/24 History liquid oregano oil 1,500 mg capsule 1,500 mg PO DAILY PRN DIRECTED 09/05/24 09/05/24 History rosuvastatin 5 mg tablet 5 mg PO Q OTHER DAY 09/05/24 09/05/24 History vitamin B complex 1 tab PO QAM 09/05/24 09/05/24 History zolpidem 5 mg tablet 5 mg PO HS 09/05/24 09/05/24 History Patient History Social History Smoking Status: Former smoker Tobacco Type: Cigarettes Second Hand Exposure: No; Do You Dip or Chew Tobacco: No; Tobacco Cessation Education Requested by Patient: No Hx Alcohol Use: No Hx Substance Use: No Preferred Language: Nauruan Communication Ability: Effective 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 Required: No Beliefs That Will Affect Care: None Current Living Situation: Spouse Other Information That Helps Us Care for You: No Feels Safe at Home: Yes Safety Concerns: Feels Safe At This Time Assistive Devices: Glasses Review of Systems 2 Review of Systems: All systems reviewed & are unremarkable except as noted in HPI & below Physical Exam 2 Physical Exam: Constitutional: No acute distress HEENT: EOMI, PERRLA Respiratory system: Good air entry bilaterally, no wheeze, no rhonchi, minimal crackles bilateral lower lobes CVS: S1-S2 positive, no murmurs or gallops Abdomen: Soft, nontender, nondistended, positive bowel sounds x4 Extremities: +2 pulses bilaterally radialis/ dorsalis pedis, no cyanosis, no edema Neuro: Awake alert oriented x3 Psych: Normal mood and affect G/U: No G[place]aldo Skin: no rashes, warm and dry Lymphatic: no cervical or axillary lymphadenopathy Results & Data Results & Data Vital Signs (Past 12 Hours) Vital Signs Temp Pulse Pulse Resp BP Pulse Ox O2 Del Method 09/05/24 07:39 99 H 09/05/24 07:15 36.5 C 84 18 148/87 H 96 Room Air 09/05/24 03:34 Room Air 09/05/24 03:34 36.3 C L 73 16 167/99 H 96 Room Air 09/05/24 02:28 81 16 142/96 H 97 Room Air 09/05/24 01:43 99 H 09/05/24 00:55 82 16 166/115 H 97 Room Air 09/04/24 23:29 110 H 16 143/88 H 97 Room Air 09/04/24 21:44 84 16 181/91 H 94 Room Air 09/04/24 21:08 88 09/04/24 20:58 83 16 164/85 H 97 Room Air 09/04/24 19:56 94 Room Air Laboratory Results 09/05/24 06:38 09/05/24 06:38 PG Care Time/CCT Total # of Minutes Spent Total Time Spent with Patient: Total time spent is greater than 50% in coordination of care (as documented) at patient's floor/unit and/or counseling patient: Coding Level of Care Code 14559 INT INP/OBS CARE 3/75MIN Diagnoses Pulmonary nodule R91.1 Bronchiectasis J47.[address] R93.89 COPD with emphysema J43.9
[2024-09-05] MEDS: FLUTICASONE PROPIONATE NA SPR 16 GM BTL SCH (08:37)
[2024-09-05] MEDS: ADVANCED PROBIOTIC 625 MG CAPSULE PO SCH (08:38)
[2024-09-05] MEDS: ASPIRIN 81 MG ECTAB PO SCH (08:38)
[2024-09-05] MEDS: VITAMIN B COMPLEX TAB PO SCH (08:39)
[2024-09-05] MEDS: ROSUVASTATIN CALCIUM 5 MG TAB PO SCH (08:39)
[2024-09-05] MEDS: MAGNESIUM OXIDE 400 MG TAB PO SCH (08:39)
[2024-09-05] MEDS: MULTIVITAMIN TAB PO SCH (08:39)
[2024-09-05] MEDS: CALCIUM 600MG + VIT D 400 IU TAB PO SCH (08:39)
--- NOTE | 2024-09-05 14:09 | Hospitalist Progress Note ---
Date of Service September 05, 2024 Assessment & Plan (1) Pneumonia: Plan: 68-year-old female with past medical history significant for prediabetes, asthma in remission, nonallergic rhinitis, hypertension, CAD, dry mouth and eyes, lichen planus, cervicalgia, migraine, adrenal nodule, persistent insomnia, comes because of ongoing cough and shortness of breath. Patient is having cough since last 3 weeks. Initially had some fever. Bringing up phlegm. Sputum was brownish and bloody. Saw pulmonary on 08/27/2024 and prescribed Z-Corey. She took Z-Corey for 1 day and next day antibiotic was changed to cefdinir. Initially she felt better but the symptoms are not improving. She called pulmonary office and chest x-ray was done and was felt not much improvement so she was advised to come to the ER. Getting shortness of breath with exertion. Some chest heaviness on and off. Sometimes chest tightness with taking deep breath on the right side. Having headache. Dry mouth. No sore throat. Feeling nauseous. No abdominal pain. Normal bowel and bladder movements. Feeling weak and tired. Hemodynamics are okay. Patient has history of MSSA. 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 Completed 3 weeks of voriconazole therapy. Plan to follow-up with CT chest in 6 months. 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 History of recurrent sinus infection. Follows with pulmonary. Pneumonia- recurrent pneumonia with persistent elation and lung as mentioned below Failed outpatient treatment with most recent antibiotic involving cefdinir which she could not finish History of aspergillosis status posttreatment for 3 weeks with voriconazole History of MAC CTA chest showing subsegmental masslike airspace consolidation involving the anterior inferior right middle lobe. Most likely pneumonia but recommended follow-up to resolution to exclude an underlying mass lesion ER given Rocephin and azithromycin Will continue with Zosyn and azithromycin Appreciate pulmonary input and recommendation- no plan for bronchoscopy during this admission. 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 wardrobe specialist for possible bronchoscopy Will continue current management- give azithromycin 500 mg for 5 more days Mild obstructive CAD per Cardiac cath 03/2023 PVCs On aspirin and statin stopped b tricia as it was causing dry mouyh Noted to be bradycardic and will hold beta-tricia for now HTN not on meds will monitor. Asthma Continue home inhalers No indication of an exacerbation Dry mouth and eyes Continue home eyedrops DVT prophylaxis SCDs for now Disposition Med/telemetry Full code Admission and Anticipated Discharge Date Admission Date: September 05, 2024 Subjective 09/05/2024 The patient was seen and examined in medical telemetry unit. She has been complaining of ongoing cough with minimal phlegm and also fever on the day of admission Has been feeling much better and denies any significant cough and no shortness of breath after admission No fever and no chills and the white count is not elevated Review of Systems Review of Systems: All systems reviewed and unremarkable except as noted below Physical Exam Physical Exam: Lying in bed without any acute distress Constitutional: well developed, well nourished, + ill appearing and average body habitus Eyes: PERRL, conjunctivae normal, anicteric sclerae ENMT: external ear and nose normal, oropharynx normal Neck: trachea midline, no thyromegaly Respiratory: no respiratory distress Auscultation: lungs clear to auscultation bilaterally Cardiovascular: Rate/Rhythm: regular rate and regular rhythm; not tachycardic Heart Sounds: normal S1 and normal S2; no murmur Extremities: no edema Gastrointestinal (Abdomen): Inspection/Auscultation: normal bowel sounds; abdomen not distended Percussion/Palpation: abdomen soft; abdomen nontender Musculoskeletal: No acute arthritis involving any of the joint Neurologic: normal touch/pain/proprioception and moves all extremities; no focal motor deficits Psychiatric: A+Ox3, euthymic affect Lymphatic: no cervical or axillary lymphadenopathy Results & Data Results & Data Vital Signs (Past 12 Hours) Vital Signs Temp Pulse Pulse Resp BP Pulse Ox O2 Del Method 09/05/24 12:02 36.8 C 42 L 18 113/77 96 Room Air 09/05/24 07:43 Room Air 09/05/24 07:39 99 H 09/05/24 07:15 36.5 C 84 18 148/87 H 96 Room Air 09/05/24 03:34 Room Air 09/05/24 03:34 36.3 C L 73 16 167/99 H 96 Room Air 09/05/24 02:28 81 16 142/96 H 97 Room Air Laboratory Results Short CBC 09/04/24 09/05/24 Range/Units 18:30 06:38 WBC 5.48 5.31 (4.8-10.8) K/ul Hgb 15.0 14.0 (12.0-16.0) g/dl Hct 44.4 41.0 (37.0-47.0) % Plt Count 271 215 (130-400) K/uL BMP 09/04/24 09/05/24 18:30 06:38 Sodium 139 142 Potassium 4.0 3.5 Chloride 102 104 Carbon Dioxide 31 31 BUN 18 11 Creatinine 0.90 0.68 Glucose 106 H 86 Calcium 9.9 9.1 Liver Function 09/04/24 Range/Units 18:30 Total Bilirubin 0.4 (0.2-1.0) mg/dl AST 33 (13-39) U/L ALT 24 (7-52) U/L Alkaline Phosphatase 91 (34-104) U/L Albumin 4.4 (3.4-5.0) gm/dl Medications Administered Current Inpatient Medications Acetaminophen (Acetaminophen 325 Mg Tab) 650 mg PO Q4H PRN PRN Reason: Pain or Fever Stop: 10/05/24 03:25 Acyclovir (Acyclovir 400 Mg Tab) 400 mg PO QPM [facility] Stop: 10/05/24 20:59 Albuterol (Albuterol Hfa 8 Gm Inhaler) 2 puffs INH Q6 PRN PRN Reason: cough or wheeze Stop: 10/05/24 03:25 Albuterol (Albuterol 0.5% Neb Soln 2.5 Mg/0.5 Ml Vial) 2.5 mg NEB Q6R [facility]; Protocol Stop: 10/05/24 18:59 Alprazolam (Alprazolam 0.25 Mg Tablet) 0.25 mg PO BID PRN PRN Reason: Anxiety Stop: 10/05/24 03:25 Aspirin (Aspirin 81 Mg Ectab) 81 mg PO QAM [facility] Stop: 10/05/24 08:59 Last Admin: 09/05/24 08:38 Dose: 81 mg Calcium/Vitamin D (Calcium 600mg + Vit D 400 Iu Tab) 1 tab PO DAILY [facility] Stop: 10/05/24 08:59 Last Admin: 09/05/24 08:39 Dose: 1 tab Cyclobenzaprine HCl (Cyclobenzaprine Hcl 10 Mg Tab) 10 mg PO BID PRN PRN Reason: Muscle Spasm Stop: 10/05/24 03:25 Fluticasone Propionate (Fluticasone Propionate Na Spr 16 Gm Btl) 1 sprays NA AMHS [facility] Stop: 10/05/24 08:59 Last Admin: 09/05/24 08:37 Dose: 1 sprays Guaifenesin (Guaifenesin 600 Mg Tabcr) 600 mg PO Q12 [facility] Stop: 10/05/24 20:59 Piperacillin Sod/Tazobactam Sod (Zosyn) 4.5 gm in 100 mls @ 25 mls/hr IV Q8H [facility]; Protocol Stop: 09/10/24 05:59 Last Admin: 09/05/24 13:33 Dose: 25 mls/hr Azithromycin (Zithromax) 500 mg in 255 mls @ 127.5 mls/hr IV Q24H [facility] Stop: 09/10/24 20:59 Lactobacillus Acidophilus (Advanced Probiotic 625 Mg Capsule) 1,250 mg PO QAM [facility] Stop: 10/05/24 08:59 Last Admin: 09/05/24 08:38 Dose: 1,250 mg Magnesium Oxide (Magnesium Oxide 400 Mg Tab) 400 mg PO DAILY [facility] Stop: 10/05/24 08:59 Last Admin: 09/05/24 08:39 Dose: 400 mg Melatonin (Melatonin 3 Mg Tab) 4.5 mg PO HS [facility] Stop: 10/05/24 20:59 Miscellaneous (Brimonidine-Timolol [Combigan]: Order Awaiting Action) 1 each N/A QS [facility] Stop: 10/05/24 07:59 Last Admin: 09/05/24 07:52 Dose: Not Given Miscellaneous (Latanoprostene Bunod [Vyzulta]: Order Awaiting Action) 1 each N/A QS [facility] Stop: 10/05/24 07:59 Last Admin: 09/05/24 07:53 Dose: Not Given Multivitamins (Multivitamin Tab) 1 tab PO QAM [facility] Stop: 10/05/24 08:59 Last Admin: 09/05/24 08:39 Dose: 1 tab Nitroglycerin (Nitroglycerin Sl 0.4 Mg/Tab Tab) 0.4 mg SL Q5M PRN PRN Reason: Chest Pain Stop: 10/05/24 03:25 Rosuvastatin Calcium (Rosuvastatin Calcium 5 Mg Tab) 5 mg PO Q48H [facility] Stop: 10/05/24 08:59 Last Admin: 09/05/24 08:39 Dose: 5 mg Sodium Chloride (Sodium Chlor 7% 4 Ml Neb) 4 ml NEB BIDR [facility] Stop: 10/05/24 18:59 Vitamin B Complex (Vitamin B Complex Tab) 1 tab PO QAM [facility] Stop: 10/05/24 08:59 Last Admin: 09/05/24 08:39 Dose: 1 tab Zolpidem Tartrate (Zolpidem Tartrate 5 Mg Tab) 5 mg PO HS [facility] Stop: 10/05/24 20:59
[2024-09-05] MEDS: CYCLOBENZAPRINE HCL 10 MG TAB PO PRN (19:04)
[2024-09-05] MEDS: ACETAMINOPHEN 325 MG TAB PO PRN (19:04)
[2024-09-05] MEDS: SODIUM CHLOR 7% 4 ML NEB NEB SCH (19:22)
[2024-09-05] MEDS: ALBUTEROL 0.5% NEB SOLN 2.5 MG/0.5 ML VIAL NEB SCH (19:22)
[2024-09-05] MEDS: BRIMONIDINE TARTRATE/TIMOLOL OP SCH (20:34)
[2024-09-05] MEDS: AZITHROMYCIN 500 MG/255 ML BAG IV SCH (20:34)
[2024-09-05] MEDS: ACYCLOVIR 400 MG TAB PO SCH (20:35)
[2024-09-05] MEDS: ZOLPIDEM TARTRATE 5 MG TAB PO SCH (20:35)
[2024-09-05] MEDS: guaiFENesin 600 MG TABCR PO SCH (20:35)
[2024-09-05] MEDS: MELATONIN 3 MG TAB PO SCH (20:35)
[2024-09-05] MEDS: ASCORBIC ACID 500 MG TAB PO SCH (20:36)
[2024-09-05] MEDS ORDERED: AZITHROMYCIN 250 MG TAB PO SCH (21:00)
--- NOTE | 2024-09-06 05:51 | Electrocardiogram Report ---
Test Reason : Blood Pressure : */* mmHG Vent. Rate : 68 BPM Atrial Rate : 68 BPM P-R Int : 140 ms QRS Dur : 78 ms QT Int : 398 ms P-R-T Axes : 64 35 66 degrees QTcB Int : 424 ms Sinus rhythm Possible Left atrial enlargement Low voltage QRS Septal infarct , age undetermined Abnormal ECG When compared with ECG of 22-Jan-2024 23:18, Septal infarct is now Present Confirmed by Manuel Singh [id number] on 09/06/2024 5:50:58 AM Referred By: Confirmed By: Manuel Singh
[2024-09-06 06:46] LABS: Hematocrit (blood only) 40.6 % (37.0-47.0); Hemoglobin 13.8 g/dl (12.0-16.0); Immature Granulocytes # (auto) 0.01 K/uL (0.01-0.20); Immature Granulocytes % (auto) 0.2 %; Mean Corpuscular Hemoglobin 29.8 pg (25.0-34.0); Mean Corpuscular Volume 87.7 fL (80.0-100.0); Platelet Count 228 K/uL (130-400); RDW Standard Deviation 38.1 fL (36.4-46.3); Red Blood Count 4.63 M/uL (4.20-5.40); White Blood Count 5.40 K/ul (4.8-10.8)
[2024-09-06 07:17] LABS: Anion Gap 7.0 (3-11); Blood Urea Nitrogen 22.0 mg/dl (6-23); Calcium 9.2 mg/dl (8.6-10.3); Carbon Dioxide 27.0 mmol/L (21-32); Chloride 105.0 mmol/L (98-107); Creatinine Clr Calc Pharmacy 53.2 ml/min; Glucose 102.0 mg/dl (70-99(Fasting)); Potassium 3.7 mmol/L (3.5-5.1); Sodium 139.0 mmol/L (136-145)
[2024-09-06 08:27] VITALS: TEMP 97.7
--- NOTE | 2024-09-06 08:29 | Pulmonology Progress Note ---
Date of Service September 06, 2024 Assessment & Plan (1) Pulmonary nodule: (2) Bronchiectasis: (3) Abnormal chest CT: (4) COPD with emphysema: Plan CTA chest 09/04/2024 personally viewed: Paraseptal emphysema appreciated bilaterally Minimal bilateral apical pleural scarring Pulmonary opacity/nodularity appreciated in the right middle lobe medial segment perifissural Pulmonary nodule with central calcification superior to there is nodularity in the right middle lobe Bronchiectasis of the medial segment of right middle lobe No significant mediastinal lymphadenopathy Social history: [id number] smoking history, quit at the age of 38. --Abnormal chest CT with right middle lobe opacity and nodule with central calcification chest tube. QTc 447 Procalcitonin negative I was personally able to look at the CAT scan of the chest in June 2024 as well as March 2024. Patient had dense consolidative process in the medial segment of right middle lobe in March 2024 which showed some improvement in June 2024 but she still had 2 pulmonary nodules in June 2024 The latest CAT scan shows consolidative process perifissural which is new. Given the duration between end of June and end august is only 2 months, I would not expect as malignancy to grow this fast. This is most likely infectious. Would recommend to continue with antibiotics. --Bronchiectasis Appreciated in the right middle lobe --COPD with emphysema [id number] smoking history, quit at the age of 38. Not on any inhalers at home Patient already follows up with pulmonary Dr. Bell as an outpatient Plan: I was personally able to look at the CAT scan of the chest in June 2024 as well as March 2024. Patient had dense consolidative process in the medial segment of right middle lobe in March 2024 which showed some improvement in June 2024 but she still had 2 pulmonary nodules in June 2024 The latest CAT scan shows consolidative process perifissural which is new. Given the duration between end of June and end august is only 2 months, I would not expect as malignancy to grow this fast. This is most likely infectious. Would recommend to continue with antibiotics. On getting more information from today patient says that she has history of GONSALO based on bronchoscopy which was done January 2024 And somebody was history of GONSALO we usually try to reserve levofloxacin and azithromycin unless absolutely indicated like in case of pseudomonal infection. Doxycycline would be preferred in patient's case Nebulized hypertonic saline with nebulized albuterol and Mucinex to help her bring up the phlegm, would recommend the same regimen even at home twice a day Recommend CT chest in 4-6 weeks. If patient still has persistent nodularity in the RML with no decrease in size then bronchoscopy will be considered. No further recommendation from pulmonary perspective, will sign off Please call directly with any questions Please note the above document was generated using voice recognition software. It may contain grammatical, syntax or spelling errors.Any formal questions or concerns about the content, text or information contained within the body of this dictation should be directly addressed to the provider for clarification. Admission and Anticipated Discharge Date Admission Date: September 05, 2024 Subjective Patient seen and examined at bedside. No acute distress, no adverse events overnight She was saturating well on room air Has been using hypertonic saline nebulized and is able to bring up some phlegm. No hemoptysis Good appetite, no nausea or vomiting No abdominal pain Denies any diarrhea Review of Systems 2 Review of Systems: All systems reviewed & are unremarkable except as noted in Subjective Physical Exam 2 Physical Exam: Constitutional: No acute distress HEENT: EOMI, PERRLA Respiratory system: Good air entry bilaterally, no wheeze, no rhonchi, no crackles CVS: S1-S2 positive, no murmurs or gallops Abdomen: Soft, nontender, nondistended, positive bowel sounds x4 Extremities: +2 pulses bilaterally radialis/ dorsalis pedis, no cyanosis, no edema Neuro: Awake alert oriented x3 Psych: Normal mood and affect G/U: No Grimaldo Skin: no rashes, warm and dry Lymphatic: no cervical or axillary lymphadenopathy Results & Data Results & Data Vital Signs (Past 12 Hours) Vital Signs Temp Pulse Pulse Resp BP BP Pulse Ox 09/06/24 08:25 36.5 C 66 17 109/69 95 09/06/24 06:57 74 17 98 09/06/24 06:45 70 09/06/24 02:57 36.3 C L 70 16 108/61 97 09/05/24 23:21 36.3 C L 66 18 111/71 97 09/05/24 21:44 82 O2 Del Method 09/06/24 08:25 Room Air 09/06/24 06:57 Room Air 09/06/24 06:45 09/06/24 02:57 Room Air 09/05/24 23:21 Room Air 09/05/24 21:44 Laboratory Results 09/06/24 05:31 09/06/24 05:31 PG Care Time/CCT Total # of Minutes Spent Total Time Spent with Patient: Total time spent is greater than 50% in coordination of care (as documented) at patient's floor/unit and/or counseling patient: Coding Level of Care Code 27053 SUB INP/OBS CARE 2/35MIN Diagnoses Pulmonary nodule R91.1 Bronchiectasis J47.[address] R93.89 COPD with emphysema J43.9
--- NOTE | 2024-09-06 11:49 | Hospitalist Progress Note ---
Date of Service September 06, 2024 Assessment & Plan (1) Pneumonia: Plan: 68-year-old female with past medical history significant for prediabetes, asthma in remission, nonallergic rhinitis, hypertension, CAD, dry mouth and eyes, lichen planus, cervicalgia, migraine, adrenal nodule, persistent insomnia, comes because of ongoing cough and shortness of breath. Patient is having cough since last 3 weeks. Initially had some fever. Bringing up phlegm. Sputum was brownish and bloody. Saw pulmonary on 08/27/2024 and prescribed Z-Corey. She took Z-Corey for 1 day and next day antibiotic was changed to cefdinir. Initially she felt better but the symptoms are not improving. She called pulmonary office and chest x-ray was done and was felt not much improvement so she was advised to come to the ER. Getting shortness of breath with exertion. Some chest heaviness on and off. Sometimes chest tightness with taking deep breath on the right side. Having headache. Dry mouth. No sore throat. Feeling nauseous. No abdominal pain. Normal bowel and bladder movements. Feeling weak and tired. Hemodynamics are okay. Patient has history of MSSA. 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 Completed 3 weeks of voriconazole therapy. Plan to follow-up with CT chest in 6 months. 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 History of recurrent sinus infection. Follows with pulmonary. Pneumonia- recurrent pneumonia with persistent elation and lung as mentioned below Failed outpatient treatment with most recent antibiotic involving cefdinir which she could not finish History of aspergillosis status posttreatment for 3 weeks with voriconazole History of MAC CTA chest showing subsegmental masslike airspace consolidation involving the anterior inferior right middle lobe. Most likely pneumonia but recommended follow-up to resolution to exclude an underlying mass lesion ER given Rocephin and azithromycin Will continue with Zosyn and azithromycin Appreciate pulmonary input and recommendation- no plan for bronchoscopy during this admission. 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 for possible bronchoscopy Will continue current management- give azithromycin 500 mg for 5 more days Clinically much better without any significant symptoms Discussed with pulmonary and she will be given doxycycline for a course of 7 days and will be discharged home this afternoon Will continue with nebulized bronchodilator and hypertonic saline as advised She will have a repeat CAT scan in 4 to 6 weeks Mild obstructive CAD per Cardiac cath 03/2023 PVCs On aspirin and statin stopped b tricia as it was causing dry mouyh Noted to be bradycardic and will hold beta-tricia for now HTN not on meds will monitor. Asthma Continue home inhalers No indication of an exacerbation Dry mouth and eyes Continue home eyedrops DVT prophylaxis SCDs for now Disposition Med/telemetry Full code Admission and Anticipated Discharge Date Admission Date: September 05, 2024 Subjective 09/05/2024 The patient was seen and examined in medical telemetry unit. She has been complaining of ongoing cough with minimal phlegm and also fever on the day of admission Has been feeling much better and denies any significant cough and no shortness of breath after admission No fever and no chills and the white count is not elevated 09/06/2024 The patient was seen and examined in medical telemetry unit She has been feeling much better with improvement of her symptoms of cough and phlegm Denies any fever and/or chills and denies any problem with ambulation Review of Systems Review of Systems: All systems reviewed and unremarkable except as noted below Physical Exam Physical Exam: Lying in bed without any acute distress Constitutional: well developed, well nourished, + ill appearing and average body habitus Eyes: PERRL, conjunctivae normal, anicteric sclerae ENMT: external ear and nose normal, oropharynx normal Neck: trachea midline, no thyromegaly Respiratory: no respiratory distress Auscultation: lungs clear to auscultation bilaterally Cardiovascular: Rate/Rhythm: regular rate and regular rhythm; not tachycardic Heart Sounds: normal S1 and normal S2; no murmur Extremities: no edema Gastrointestinal (Abdomen): Inspection/Auscultation: normal bowel sounds; abdomen not distended Percussion/Palpation: abdomen soft; abdomen nontender Musculoskeletal: no acute arthritis involving any of the joint Neurologic: normal touch/pain/proprioception and moves all extremities; no focal motor deficits Psychiatric: A+Ox3, euthymic affect Lymphatic: no cervical or axillary lymphadenopathy Results & Data Results & Data Vital Signs (Past 12 Hours) Vital Signs Temp Pulse Pulse Resp BP BP Pulse Ox 09/06/24 08:25 36.5 C 66 17 109/69 95 09/06/24 06:57 74 17 98 09/06/24 06:45 70 09/06/24 02:57 36.3 C L 70 16 108/61 97 O2 Del Method 09/06/24 08:25 Room Air 09/06/24 06:57 Room Air 09/06/24 06:45 09/06/24 02:57 Room Air Laboratory Results Short CBC 09/06/24 Range/Units 05:31 WBC 5.40 (4.8-10.8) K/ul Hgb 13.8 (12.0-16.0) g/dl Hct 40.6 (37.0-47.0) % Plt Count 228 (130-400) K/uL BMP 09/06/24 05:31 Sodium 139 Potassium 3.7 Chloride 105 Carbon Dioxide 27 BUN 22 Creatinine 0.91 Glucose 102 H Calcium 9.2 Medications Administered Current Inpatient Medications Acetaminophen (Acetaminophen 325 Mg Tab) 650 mg PO Q4H PRN PRN Reason: Pain or Fever Stop: 10/05/24 03:25 Last Admin: 09/05/24 19:04 Dose: 650 mg Acyclovir (Acyclovir 400 Mg Tab) 400 mg PO QPM [facility] Stop: 10/05/24 20:59 Last Admin: 09/05/24 20:35 Dose: 400 mg Albuterol (Albuterol Hfa 8 Gm Inhaler) 2 puffs INH Q6 PRN PRN Reason: cough or wheeze Stop: 10/05/24 03:25 Albuterol (Albuterol 0.5% Neb Soln 2.5 Mg/0.5 Ml Vial) 2.5 mg NEB Q6R [facility]; Protocol Stop: 10/05/24 18:59 Last Admin: 09/06/24 06:57 Dose: 2.5 mg Alprazolam (Alprazolam 0.25 Mg Tablet) 0.25 mg PO BID PRN PRN Reason: Anxiety Stop: 10/05/24 03:25 Ascorbic Acid (Ascorbic Acid 500 Mg Tab) 500 mg PO TID [facility] Stop: 10/05/24 20:59 Last Admin: 09/06/24 08:00 Dose: 500 mg Aspirin (Aspirin 81 Mg Ectab) 81 mg PO QAM [facility] Stop: 10/05/24 08:59 Last Admin: 09/06/24 08:00 Dose: 81 mg Brimonidine/Timolol (Brimonidine Tartrate/Timolol) 1 drops OP BID [facility] Stop: 10/05/24 20:59 Last Admin: 09/06/24 08:00 Dose: 1 drops Calcium/Vitamin D (Calcium 600mg + Vit D 400 Iu Tab) 1 tab PO DAILY [facility] Stop: 10/05/24 08:59 Last Admin: 09/06/24 08:00 Dose: 1 tab Cyclobenzaprine HCl (Cyclobenzaprine Hcl 10 Mg Tab) 10 mg PO BID PRN PRN Reason: Muscle Spasm Stop: 10/05/24 03:25 Last Admin: 09/05/24 19:04 Dose: 10 mg Fluticasone Propionate (Fluticasone Propionate Na Spr 16 Gm Btl) 1 sprays NA AMHS [facility] Stop: 10/05/24 08:59 Last Admin: 09/06/24 08:00 Dose: 1 sprays Guaifenesin (Guaifenesin 600 Mg Tabcr) 600 mg PO Q12 [facility] Stop: 10/05/24 20:59 Last Admin: 09/06/24 08:00 Dose: 600 mg Piperacillin Sod/Tazobactam Sod (Zosyn) 4.5 gm in 100 mls @ 25 mls/hr IV Q8H [facility]; Protocol Stop: 09/10/24 05:59 Last Infusion: 09/06/24 09:17 Dose: Infused Azithromycin (Zithromax) 500 mg in 255 mls @ 127.5 mls/hr IV Q24H [facility] Stop: 09/10/24 20:59 Last Infusion: 09/05/24 23:03 Dose: Infused Lactobacillus Acidophilus (Advanced Probiotic 625 Mg Capsule) 1,250 mg PO QAM [facility] Stop: 10/05/24 08:59 Last Admin: 09/06/24 08:00 Dose: 1,250 mg Magnesium Oxide (Magnesium Oxide 400 Mg Tab) 400 mg PO DAILY [facility] Stop: 10/05/24 08:59 Last Admin: 09/06/24 08:00 Dose: 400 mg Melatonin (Melatonin 3 Mg Tab) 4.5 mg PO HS [facility] Stop: 10/05/24 20:59 Last Admin: 09/05/24 20:35 Dose: 4.5 mg Miscellaneous (Excedrin Migraine*Order Awaiting Action) 1 each N/A QS [facility] Stop: 10/06/24 15:59 Multivitamins (Multivitamin Tab) 1 tab PO QAM [facility] Stop: 10/05/24 08:59 Last Admin: 09/06/24 08:00 Dose: 1 tab Nitroglycerin (Nitroglycerin Sl 0.4 Mg/Tab Tab) 0.4 mg SL Q5M PRN PRN Reason: Chest Pain Stop: 10/05/24 03:25 Latanoprostene Bunod ([Vyzulta]) 1 each OP HS [facility] Stop: 10/05/24 20:59 Last Admin: 09/05/24 20:35 Dose: 1 drops Rosuvastatin Calcium (Rosuvastatin Calcium 5 Mg Tab) 5 mg PO Q48H [facility] Stop: 10/05/24 08:59 Last Admin: 09/05/24 08:39 Dose: 5 mg Sodium Chloride (Sodium Chlor 7% 4 Ml Neb) 4 ml NEB BIDR [facility] Stop: 10/05/24 18:59 Last Admin: 09/06/24 06:57 Dose: 4 ml Vitamin B Complex (Vitamin B Complex Tab) 1 tab PO QAM [facility] Stop: 10/05/24 08:59 Last Admin: 09/06/24 08:00 Dose: 1 tab Zolpidem Tartrate (Zolpidem Tartrate 5 Mg Tab) 5 mg PO HS [facility] Stop: 10/05/24 20:59 Last Admin: 09/05/24 20:35 Dose: 5 mg
[2024-09-06] MEDS: DOXYCYCLINE HYCLATE 100 MG CAP PO STA (12:47)
[2024-09-06 12:51] VITALS: BP 108/61
[2024-09-06 13:40] VITALS: RESP 16; O2SAT 97
[2024-09-06 14:40] VITALS: PULSE 64
--- NOTE | 2024-09-07 08:18 | Discharge Summary ---
Date of Service September 07, 2024 Admission HPI Per Admitting Provider 68-year-old female with past medical history significant for prediabetes, asthma in remission, nonallergic rhinitis, hypertension, CAD, dry mouth and eyes, lichen planus, cervicalgia, migraine, adrenal nodule, persistent insomnia, comes because of ongoing cough and shortness of breath. Patient is having cough since last 3 weeks. Initially had some fever. Bringing up phlegm. Sputum was brownish and bloody. Saw pulmonary on 08/27/2024 and prescribed Z-Corey. She took Z-Corey for 1 day and next day antibiotic was changed to cefdinir. Initially she felt better but the symptoms are not improving. She called pulmonary office and chest x-ray was done and was felt not much improvement so she was advised to come to the ER. Getting shortness of breath with exertion. Some chest heaviness on and off. Sometimes chest tightness with taking deep breath on the right side. Having headache. Dry mouth. No sore throat. Feeling nauseous. No abdominal pain. Normal bowel and bladder movements. Feeling weak and tired. Hemodynamics are okay. Patient has history of MSSA. 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 Completed 3 weeks of voriconazole therapy. Plan to follow-up with CT chest in 6 months. 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 History of recurrent sinus infection. Follows with pulmonary. Past medical history. As mentioned above Past surgical history. Breast lesion excision. Bronchoscopy colonoscopy with left heart catheterization. Cryocautery of cervix. Social history. . Quit smoking 1984. Smoked 1 pack a day for 7 years. No alcohol use. No drug use. Family history. Paternal aunt had breast cancer. Paternal grandfather had lung and colon cancer. Mother had dementia. GERD. Father had NE. Maternal grandfather heart disorder. Sister has migraines. Admission Exam Per Admitting Provider Physical Exam: General- Not in distress Head- atraumatic Eyes- PERRL. ENT- oropharynx clear Neck- supple, no JVD. Lungs- clear to auscultation no wheezing or crackles Heart- regular rhythm; no murmur, no gallop. Abdomen- normal bowel sounds, soft, nontender, no distension Extremities- no pretibial edema, no erythema seen Neuro- alert, oriented PERRL, no facial palsy; no dysarthria; moves extremities Principal Diagnosis Pneumonia, bronchiectasis, COPD with emphysema, pulmonary nodule Discharge Exam Lying in bed without any acute distress Constitutional well developed, well nourished, + ill appearing and average body habitus Eyes PERRL, conjunctivae normal, anicteric sclerae ENMT external ear and nose normal, oropharynx normal Neck trachea midline, no thyromegaly Respiratory no respiratory distress Auscultation: lungs clear to auscultation bilaterally Cardiovascular Rate/Rhythm: regular rate and regular rhythm; not tachycardic Heart Sounds: normal S1 and normal S2; no murmur Extremities: no edema Gastrointestinal (Abdomen) Inspection/Auscultation: normal bowel sounds; abdomen not distended Percussion/Palpation: abdomen soft; abdomen nontender Neurologic normal touch/pain/proprioception and moves all extremities; no focal motor deficits Psychiatric A+Ox3, euthymic affect Lymphatic no cervical or axillary lymphadenopathy Discharge Data Allergies Allergy/AdvReac Type Severity Reaction Status Date / Time latex Allergy sores in Verified 09/05/24 00:31 mouth Consultations 09/04/24 23:59 ED Decision to Admit Stat 09/05/24 08:00 Consult Pulmonology Routine Ordered Studies 09/04/24 21:20 CT angio chest PE protocol Stat Hospital Course (1) Pneumonia: 68-year-old female with past medical history significant for prediabetes, asthma in remission, nonallergic rhinitis, hypertension, CAD, dry mouth and eyes, lichen planus, cervicalgia, migraine, adrenal nodule, persistent insomnia, comes because of ongoing cough and shortness of breath. Patient is having cough since last 3 weeks. Initially had some fever. Bringing up phlegm. Sputum was brownish and bloody. Saw pulmonary on 08/27/2024 and prescribed Z-Corey. She took Z-Corey for 1 day and next day antibiotic was changed to cefdinir. Initially she felt better but the symptoms are not improving. She called pulmonary office and chest x-ray was done and was felt not much improvement so she was advised to come to the ER. Getting shortness of breath with exertion. Some chest heaviness on and off. Sometimes chest tightness with taking deep breath on the right side. Having headache. Dry mouth. No sore throat. Feeling nauseous. No abdominal pain. Normal bowel and bladder movements. Feeling weak and tired. Hemodynamics are okay. Patient has history of MSSA. 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 Completed 3 weeks of voriconazole therapy. Plan to follow-up with CT chest in 6 months. 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 History of recurrent sinus infection. Follows with pulmonary. Pneumonia- recurrent pneumonia with persistent elation and lung as mentioned b ashlyn Failed outpatient treatment with most recent antibiotic involving cefdinir which she could not finish History of aspergillosis status posttreatment for 3 weeks with voriconazole History of MAC CTA chest showing subsegmental masslike airspace consolidation involving the anterior inferior right middle lobe. Most likely pneumonia but recommended follow-up to resolution to exclude an underlying mass lesion ER given Rocephin and azithromycin Will continue with Zosyn and azithromycin Appreciate pulmonary input and recommendation- no plan for bronchoscopy during this admission. 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 admitting coordinator for possible bronchoscopy Will continue current management- give azithromycin 500 mg for 5 more days Clinically much better without any significant symptoms Discussed with pulmonary and she will be given doxycycline for a course of 7 days and will be discharged home this afternoon Will continue with nebulized bronchodilator and hypertonic saline as advised She will have a repeat CAT scan in 4 to 6 weeks Mild obstructive CAD per Cardiac cath 03/2023 PVCs On aspirin and statin stopped b tricia as it was causing dry mouyh Noted to be bradycardic and will hold beta-tricia for now HTN not on meds will monitor. Asthma Continue home inhalers No indication of an exacerbation Dry mouth and eyes Continue home eyedrops DVT prophylaxis SCDs for now Disposition Med/telemetry Full code Total Time Total Time Spent Total Time Spent (In Minutes): 40 minutes Discharge Plan Discharge Items Patient Disposition: Home - Self-Care Reason For Visit: SOB, PNEUMONIA Discharge Diagnosis: Pneumonia, bronchiectasis, COPD with emphysema, pulmonary nodule Condition on Discharge: Good Activity: Resume your previous activity Non-emergency contact: Primary Care Provider Call non-emergency contact if: you have any medication questions and your symptoms worsen Follow-up/Referrals: Yesi Jones PA-C [Primary Care Provider] - (Please make an appointment with your PCP within 7 days) Diet: Heart Healthy Addtl Attending Provider Instructions: Please take precautions to avoid any falls Finish the course of antibiotic as advised Use nebulizer solutions twice daily as advised You need to have a repeat CAT scan in 4 to 6 weeks Keep outpatient pulmonary appointment regularly Pending Studies at Discharge: No Stand-Alone Forms: My [facility], Smoking Cessation Medications and DC Order Prescriptions: New albuterol sulfate 2.5 mg/0.5 mL Solution For Nebulization 2.5 mg NEB BID Qty: 60 0RF sodium chloride 7 % Solution For Nebulization 4 ml NEB BIDR Qty: 240 0RF doxycycline hyclate 100 mg capsule 100 mg PO BID 14 Days Qty: 28 0RF albuterol sulfate 2.5 mg /3 mL (0.083 %) solution for nebulization 2.5 mg inhalation Q12H PRN (Reason: shortness of breath or wheezing) Qty: 6 0RF Continued cyclobenzaprine 10 mg tablet 10 mg PO BID PRN (Reason: Muscle Spasm) zolpidem 5 mg tablet 5 mg PO HS Rx Instructions: 30 minutes before bedtime fluticasone propionate 50 mcg/actuation spray,suspension 1 spray intranasal [facility] brimonidine-timolol [Combigan] 0.2-0.5 % drops 1 drp OPB [facility] aspirin 81 mg Tablet,Delayed Release (Dr/Ec) 81 mg PO QAM alprazolam 0.25 mg tablet 0.25 mg PO BID PRN (Reason: Anxiety) albuterol sulfate 90 mcg/actuation HFA aerosol inhaler 2 puff INHALATION Q6 PRN (Reason: cough or wheeze) rosuvastatin 5 mg Tablet 5 mg PO Q OTHER DAY Vyzulta 0.024 % drops 1 drp OPB HS ascorbic acid (vitamin C) [Vitamin C] 1,000 mg Tablet 3,000 mg PO TID acyclovir 400 mg tablet 400 mg PO QPM vitamin B complex Tablet 1 tab PO QAM lysine HCl 1,000 mg Tablet 1,000 mg PO TID cinnamon bark [Cinnamon] 500 mg Capsule 500 mg PO AMPM multivitamin Tablet 1 tab PO QAM magnesium 250 mg Tablet 500 mg PO DAILY garlic 580 mg Capsule 1 mg PO QAM melatonin 5 mg Capsule 5 mg PO HS calcium carbonate-vitamin D3 1,000 mg-20 mcg (800 unit) Tablet 1 tab PO DAILY L.acidoph,plant-B.animal,long 2 billion cell Capsule 1 cap PO QAM echinacea 380 mg Capsule 380 mg PO TID oregano oil 1,500 mg Capsule 1,500 mg PO DAILY PRN (Reason: DIRECTED) Mushroom Complex capsule 1 cap PO QAM Excedrin Migraine 250-250-65 mg Tablet 1 tab PO Q6H PRN (Reason: Headache) Apple Cider Vinegar Plus [phone] [id number]-mg Tablet 1 tab PO 3XWK colostrum, bovine 500 mg Capsule 1,000 mg PO QAM nutritional supplement-fiber Liquid 1 ea PO UD Nucleo Immune capsule 1 cap PO QAM Discontinued cefdinir 300 mg capsule 300 mg PO [facility] Rx Instructions: start 08/29/24 Discharge Orders: Discharge Order (Routine); Ordered 09/06/24 Ordered By: Marii Mcelroy/Other Patient Handouts: Treating Pneumonia Admission Data Admit Date/Time: 09/05/24 02:20 Attending Provider: Marii Knight Admit Provider: Duglas Coats Primary Care Provider: Yesi Jones Other Providers: Duglas Coats; Sindy Chaudhry Other Interventions: Discharge Summary Assessment (RN) Last Done: 09/06/24 12:50
== END 2024-09-06 15:26 | disposition home or self-care (01) | DRG 195 ==
LOC: ED 17:17 → 2N 09-05 02:20 → INTOOBSV 09-05 02:20 → 2N 09-05 02:53